=== PATIENT | female | born 1980 | race American Indian/Alaskan Native ===

== ENCOUNTER 2018-04-13 13:15 | Emergency (ER) | payer SELFPAY ==
[2018-04-13] MEDS ORDERED: NORCO 5/325 PO ONE (20:02)
--- NOTE | 2018-04-13 20:48 | Emergency Department Report ---
HPI - General Chief Complaint: Abdominal Pain Time Seen by Provider: 04/13/18 19:51 - HPI HPI: 38-year-old female presents to the emergency department from home with complaint of a 2 day history of some epigastric to left upper quadrant abdominal pain that is associated with one day of nausea and diarrhea but no vomiting. She also complains of worsening of her chronic low back pain since she had a fall 2 months ago. She denies any numbness or paresthesias, problems with urinary retention, or with any neurological deficits. She took some ibuprofen for her symptoms without any relief. She has a past medical history of asthma, hypertension and degenerative disc disease of the lumbar region. No recent travel or sick contacts at home. ED Past Medical Hx - Past Medical History Previous Medical History?: Yes Hx Hypertension: Yes Hx Asthma: Yes Additional medical history: DJD lumbar region - Surgical History Past Surgical History?: Yes Additional Surgical History: x 4, hernia repair, D&C - Social History Smoking Status: Never Smoker Substance Use Type: Alcohol - Medications Home Medications: Home Medications Medication Instructions Recorded Confirmed Last Taken Type HYDROcodone/APAP 5-325 [[place] 1 each PO Q6HR PRN #10 tablet 04/13/18 Unknown Rx 5/325] Ondansetron [Zofran Odt] 4 mg PO Q8H PRN #10 tab.rapdis 04/13/18 Unknown Rx ED Review of Systems ROS: Stated complaint: ABD PAIN Other details as noted in HPI Comment: All other systems reviewed and negative Constitutional: denies: chills, fever Eyes: denies: eye pain, eye discharge, vision change ENT: denies: ear pain, throat pain Respiratory: denies: cough, shortness of breath, wheezing Cardiovascular: denies: chest pain, palpitations Gastrointestinal: abdominal pain, nausea. denies: vomiting Genitourinary: denies: dysuria, discharge Musculoskeletal: back pain. denies: arthralgia Skin: denies: rash, lesions Neurological: denies: headache, weakness, numbness Physical Exam - Physical Exam Vital Signs: Vital Signs 04/13/18 04/13/18 13:29 20:28 Temperature 99.2 F Pulse Rate 63 Respiratory 20 18 Rate Blood Pressure 152/95 O2 Sat by Pulse 96 Oximetry Physical Exam: GENERAL: The patient is well-developed well-nourished. HEENT: Normocephalic. Atraumatic. Patient has moist mucous membranes. EYES: Extraocular motions are intact. NECK: Supple. Trachea is midline. CHEST/LUNGS: Clear to auscultation. There is no respiratory distress noted. HEART/CARDIOVASCULAR: Regular. There is no tachycardia. There is no gallop rub or murmur. ABDOMEN: Abdomen is soft. There is some mild tenderness to palpation to the left upper quadrant. No guarding. Patient has normal bowel sounds. Morbidly obese habitus. SKIN: Skin is warm and dry. NEURO: The patient is awake, alert, and oriented. The patient is cooperative. The patient has no focal neurologic deficits. The patient has normal speech. MUSCULOSKELETAL: There is no tenderness or deformity. There is no limitation range of motion. There is no evidence of acute injury. BACK: There is both midline and bilateral paraspinal lumbar tenderness to palpation. No step-off or deformity. ED Course Vital Signs 04/13/18 04/13/18 13:29 20:28 Temperature 99.2 F Pulse Rate 63 Respiratory 20 18 Rate Blood Pressure 152/95 O2 Sat by Pulse 96 Oximetry ED Medical Decision Making - Lab Data Result diagrams: 04/13/18 20:15 04/13/18 20:15 - Radiology Data Radiology results: image reviewed interpreted by me: Abdominal x-ray shows nonspecific nonobstructive bowel gas. X-ray of the lumbar spine does not show any fracture, subluxation or any acute process. - Medical Decision Making Patient presents with a complaint of a few days of left upper quadrant abdominal pain along with some nausea and diarrhea today. Just complains of acute on chronic low back pain since a fall 2 months ago. The patient does not have any focal, motor or sensory deficits in her cranial nerves are intact. No complaints of any problems with bowel or bladder, numbness or paresthesias or any neurological deficits. She appears low suspicion for any of the emergent back condition such as cauda equina, epidural abscess or cord compression syndrome. She had an x-ray of the lumbar spine but does not show any fracture, dislocation or any acute process. Patient's labs have been unremarkable including normal belly labs such as lipase, LFTs and bilirubin. Abdominal x- ray does not show any acute process. The patient was given a single pain pill with improvement of her abdominal pain. Vital signs stable throughout her ED course. She has been reevaluated multiple times several hours. She appears safe for discharge home at this time. She has been given a referral for primary care, gastroenterology and an orthopedist. She will return the ER with any worsening of her symptoms or any acute distress. - Differential Diagnosis gastritis, colitis, osteoarthritis, back strain Critical Care Time: No Critical care attestation.: If time is entered above; I have spent that time in minutes in the direct care of this critically ill patient, excluding procedure time. ED Disposition Clinical Impression: Hypertension Qualifiers: Hypertension type: essential hypertension Qualified Code(s): I10 - Essential ( primary) hypertension Abdominal pain Qualifiers: Abdominal location: upper abdomen, unspecified Qualified Code(s): R10.10 - Upper abdominal pain, unspecified Back pain Qualifiers: Back pain location: low back pain Chronicity: chronic Back pain laterality: bilateral Sciatica presence: without sciatica Qualified Code(s): M54.5 - Low back pain Disposition: TO HOME OR SELFCARE Is pt being admited?: No Condition: Stable Instructions: Abdominal Pain (ED), Hypertension (ED), Back Pain (ED) Additional Instructions: Please follow up with a primary care physician in the next few days. I will give you some referrals for primary care physicians and/or clinics in the area. I have given him a referral for a local supervisor speech, Dr. Handley, to follow up regarding her abdominal pain. I am getting a referral for a local orthopedic group, [facility], to follow up regarding her back pain. Return to the emergency Department with any worsening of your symptoms or any acute distress. You have been prescribed a medication that can be sedating. Therefore this medication should not be mixed with alcohol of any quantity, and cannot be taken prior to driving, working, or being responsible for children. Prescriptions: HYDROcodone/APAP 5-325 [[place] 5/325] 1 each PO Q6HR PRN #10 tablet PRN Reason: Pain Ondansetron [Zofran Odt] 4 mg PO Q8H PRN #10 tab.rapdis PRN Reason: Nausea Referrals: PRIMARY MD MANDI [Primary Care Provider] - 3-5 Days LINDY HANDLEY MD [Staff Physician] - 3-5 Days DAYANARA KRISHNAMURTHY MD [Staff Physician] - 3-5 Days [facility] [Outside] - 3-5 Days [facility] [Provider Group] - 3-5 Days Time of Disposition: 23:10
[2018-04-13 20:54] LABS: Hematocrit 39.8 % (30.3-42.9); Hemoglobin 12.7 gm/dl (10.1-14.3); Mean Corpuscular HGB Conc 32 % (30-34); Mean Corpuscular Hemoglobin 27 pg (28-32); Mean Corpuscular Volume 84 fl (79-97); Platelet Count 242 K/mm3 (140-440); Red Blood Count 4.72 M/mm3 (3.65-5.03)
[2018-04-13 21:05] LABS: Albumin 4.1 g/dL (3.9-5); BUN/Creatinine Ratio 33; Blood Urea Nitrogen 20 mg/dL (7-17); Hemolysis Index 48; Lipase 10 units/L (13-60)
[2018-04-13 21:06] LABS: Alanine Aminotransferase < 5 units/L (7-56)
--- NOTE | 2018-04-13 22:56 | XRay Report ---
FINAL REPORT EXAM: XR SPINE LUMBOSACRAL 2-3V HISTORY: back pain TECHNIQUE: Lumbar spine 5 views PRIORS: None. FINDINGS: Vertebral bodies demonstrate normal height and alignment. The disc spaces are within normal limits. There is no evidence of spondylolisthesis. Transverse and spinous processes are intact SI joints are unremarkable. IMPRESSION: Negative lumbar spine series
--- NOTE | 2018-04-13 22:57 | XRay Report ---
FINAL REPORT EXAM: XR ABDOMEN 2V HISTORY: abd pain TECHNIQUE: Supine abdomen PRIORS: None. FINDINGS: Moderate amount of stool and gas present within the colon. No evidence of colonic or small bowel dilatation. No signs of free air. No abnormal calcifications are identified. IMPRESSION: Nonobstructive bowel gas pattern. No acute abnormality seen.
[2018-04-13 23:33] VITALS: BP 146/72
== END 2018-04-13 23:31 | disposition home or self-care (01) ==
LOC: ED 13:15
DX: R10.12 Left upper quadrant pain (principal); I10 Essential (primary) hypertension; M54.5 Low back pain; J45.909 Unspecified asthma, uncomplicated; F10.920 Alcohol use, unspecified with intoxication, uncomplicated
CPT/HCPCS: 36415; 72100; 74019; 80053; 83690; 84703; 85025; 99284

== ENCOUNTER 2019-01-09 13:37 | Emergency (ER) | payer OTHER ==
[2019-01-09 13:50] VITALS: BP 146/94
[2019-01-09] MEDS ORDERED: NACL 0.9% 1000 ML 1,000 ML IV ONE (13:50)
[2019-01-09] MEDS ORDERED: ZOFRAN ODT PO/SL ONE (13:50)
--- NOTE | 2019-01-09 13:50 | Event Note ---
ED Screening Note ED Screening Note: n/v today l flank pain also sob- tight from asthma pmh fibroids htn obese migraines pe last year; off eloquis Carlos asthma etoh occ lmp just off csec x 4 d/c hernia repair off all her bp meds and topamax This initial assessment/diagnostic orders/clinical plan/treatment(s) is/are subject to change based on patients health status, clinical progression and re- assessment by fellow clinical providers in the ED. Further treatment and workup at subsequent clinical providers discretion. Patient/guardian urged not to elope from the ED as their condition may be serious if not clinically assessed and managed. Initial orders include: labs ua
[2019-01-09] MEDS: ZOFRAN IV ONE ×2 (13:52→18:26)
[2019-01-09] MEDS ORDERED: ZOFRAN ODT ONE (13:53)
[2019-01-09 15:17] LABS: Hematocrit 35.7 % (30.3-42.9); Hemoglobin 11.8 gm/dl (10.1-14.3); Mean Corpuscular HGB Conc 33 % (30-34); Mean Corpuscular Volume 84 fl (79-97); Platelet Count 292 K/mm3 (140-440); Red Blood Count 4.27 M/mm3 (3.65-5.03); Red Cell Distribution Width 17.4 % (13.2-15.2)
[2019-01-09] MEDS ORDERED: MORPHINE IV ONE ×2 (17:34→20:20)
--- NOTE | 2019-01-09 17:39 | Emergency Department Report ---
ED Abdominal Pain HPI - General Chief Complaint: Abdominal Pain Stated Complaint: ABD PAIN/NAUSEA Time Seen by Provider: 01/09/19 13:46 Source: patient Mode of arrival: Ambulatory Limitations: No Limitations - History of Present Illness Initial Comments: This is a 38 year-old female who presents to the emergency room with left lower quadrant abdominal pain for 2 days. Patient states worsening pain today with nausea, vomiting, shortness of breath, and diarrhea. Past medical history fibroids, hypertension, and asthma. Last menstrual period 01/01/2019. She also reports some mid back pain that is worse with deep rest. She denies recent travel, fever, cough, urinary frequency, urgency, dysuria. MD Complaint: abdominal pain Onset/Timin -: days(s) Location: LLQ Radiation: back Migration to: no migration Severity: severe Severity scale (0 -10): 10 Quality: stabbing, sharp Consistency: constant Improves With: nothing Worsens With: movement Associated Symptoms: nausea, vomiting, diarrhea. denies: fever, chills, constipation, dysuria, hematemesis, hematochezia, melena, hematuria, anorexia, syncope Treatments Prior to Arrival: NSAIDs - Related Data LMP Date: 01/01/19 Home Medications Medication Instructions Recorded Confirmed Last Taken Remeron 30 mg PO HS 04/23/18 05/11/18 Unknown traZODone 150 mg PO HS 04/23/18 05/11/18 Unknown Previous Rx's Medication Instructions Recorded Last Taken Type Losartan 100 mg PO DAILY #30 04/25/18 Unknown Rx amLODIPine 10 mg PO DAILY #30 04/25/18 Unknown Rx Apixaban [Eliquis] 5 mg PO BID 30 Days tablet 05/16/18 Unknown Rx Prednisone [predniSONE 5 mg (6-Day 5 mg PO .TAPER #1 tab.ds.pk 05/16/18 Unknown Rx Pack, 21 Tabs)] amLODIPine [Norvasc] 10 mg PO DAILY #30 tablet 05/16/18 Unknown Rx guaiFENesin ER [Mucinex ER] 600 mg PO BID #30 tablet 05/16/18 Unknown Rx oxyCODONE /ACETAMINOPHEN [Percocet 2 tab PO Q6H PRN #20 tablet 05/16/18 Unknown Rx 5/325 mg] Dicyclomine [Bentyl] 20 mg PO QID #30 tablet 05/28/18 Unknown Rx Amoxicillin 500 mg PO QID #40 capsule 06/29/18 Unknown Rx Chlorhexidine Mouthwash [Peridex] 15 ml MM BID #473 bottle 06/29/18 Unknown Rx Ketorolac [Toradol] 10 mg PO Q6H PRN #15 tablet 06/29/18 Unknown Rx Lidocaine Viscous 2% 5 ml MM Q3H PRN #120 udc 06/29/18 Unknown Rx Lopressor TAB 25 mg PO BID #60 06/29/18 Unknown Rx Ibuprofen [Motrin 800 MG tab] 800 mg PO Q8HR PRN #20 tablet 01/09/19 Unknown Rx Allergies Allergy/AdvReac Type Severity Reaction Status Date / Time No Known Allergies Allergy Verified 01/09/19 13:50 ED Review of Systems ROS: Stated complaint: ABD PAIN/NAUSEA Other details as noted in HPI Constitutional: denies: chills, fever Respiratory: denies: cough, shortness of breath, wheezing Cardiovascular: denies: chest pain, palpitations Gastrointestinal: abdominal pain, nausea, vomiting, diarrhea. denies: constipation, hematochezia Genitourinary: denies: urgency, dysuria, discharge Musculoskeletal: back pain. denies: joint swelling, arthralgia Skin: denies: rash, lesions Neurological: denies: headache, weakness, paresthesias Psychiatric: denies: anxiety, depression ED Past Medical Hx - Past Medical History Previous Medical History?: Yes Hx Hypertension: Yes Hx CVA: No Hx Heart Attack/AMI: No Hx Congestive Heart Failure: No Hx Diabetes: No Hx Deep Vein Thrombosis: No Hx Pulmonary Embolism: Yes (right 2018) Hx GERD: No Hx Liver Disease: No Hx Renal Disease: No Hx of Cancer: No Hx Sickle Cell Disease: No Hx Arthritis: No Hx Headaches / Migraines: Yes Hx Seizures: No Hx Kidney Stones: No Hx Psychiatric Treatment: No Hx Asthma: Yes Hx COPD: No Hx Tuberculosis: No Hx Dementia: No Hx HIV: No Additional medical history: DJD lumbar region - Surgical History Past Surgical History?: Yes Hx Coronary Stent: No Hx Pacemaker: No Hx Internal Defibrillator: No Hx Cholecystectomy: No Hx Appendectomy: No Hx Breast Surgery: No Additional Surgical History: x 4, hernia repair, D&C - Social History Smoking Status: Never Smoker Substance Use Type: Alcohol - Medications Home Medications: Home Medications Medication Instructions Recorded Confirmed Last Taken Type Remeron 30 mg PO HS 04/23/18 05/11/18 Unknown History traZODone 150 mg PO HS 04/23/18 05/11/18 Unknown History Losartan 100 mg PO DAILY #30 04/25/18 05/11/18 Unknown Rx amLODIPine 10 mg PO DAILY #30 04/25/18 05/11/18 Unknown Rx Apixaban [Eliquis] 5 mg PO BID 30 Days tablet 05/16/18 Unknown Rx Prednisone [predniSONE 5 mg (6-Day 5 mg PO .TAPER #1 tab.ds.pk 05/16/18 Unknown Rx Pack, 21 Tabs)] amLODIPine [Norvasc] 10 mg PO DAILY #30 tablet 05/16/18 Unknown Rx guaiFENesin ER [Mucinex ER] 600 mg PO BID #30 tablet 05/16/18 Unknown Rx oxyCODONE /ACETAMINOPHEN [Percocet 2 tab PO Q6H PRN #20 tablet 05/16/18 Unknown Rx 5/325 mg] Dicyclomine [Bentyl] 20 mg PO QID #30 tablet 05/28/18 Unknown Rx Amoxicillin 500 mg PO QID #40 capsule 06/29/18 Unknown Rx Chlorhexidine Mouthwash [Peridex] 15 ml MM BID #473 bottle 06/29/18 Unknown Rx Ketorolac [Toradol] 10 mg PO Q6H PRN #15 tablet 06/29/18 Unknown Rx Lidocaine Viscous 2% 5 ml MM Q3H PRN #120 udc 06/29/18 Unknown Rx Lopressor TAB 25 mg PO BID #60 06/29/18 Unknown Rx Ibuprofen [Motrin 800 MG tab] 800 mg PO Q8HR PRN #20 tablet 01/09/19 Unknown Rx ED Physical Exam - General Limitations: No Limitations General appearance: alert, in no apparent distress, obese (morbidly) - Respiratory Respiratory exam: Present: normal lung sounds bilaterally. Absent: respiratory distress - Cardiovascular Cardiovascular Exam: Present: regular rate, normal rhythm. Absent: systolic murmur, diastolic murmur, rubs, gallop - GI/Abdominal GI/Abdominal exam: Present: soft, tenderness (left lower quadrant and left upper quadrant), normal bowel sounds. Absent: distended, guarding, rebound, rigid, organomegaly, mass - Back Exam Back exam: Absent: CVA tenderness (R), CVA tenderness (L) - Neurological Exam Neurological exam: Present: alert, oriented X3 - Psychiatric Psychiatric exam: Present: normal affect, normal mood - Skin Skin exam: Present: warm, dry, intact, normal color. Absent: rash ED Course Vital Signs 01/09/19 01/09/19 01/09/19 13:47 18:14 18:44 Temperature 98.4 F Pulse Rate 107 H Respiratory 22 18 18 Rate Blood Pressure 146/94 [Right] O2 Sat by Pulse 95 Oximetry 01/09/19 20:35 Temperature Pulse Rate Respiratory 16 Rate Blood Pressure [Right] O2 Sat by Pulse Oximetry ED Medical Decision Making - Lab Data Result diagrams: 01/09/19 14:51 01/09/19 19:50 Lab Results 01/09/19 01/09/19 01/09/19 Range/Units 14:51 14:51 19:12 WBC 6.9 (4.5-11.0) K/mm3 RBC 4.27 (3.65-5.03) M/mm3 Hgb 11.8 (10.1-14.3) gm/dl Hct 35.7 (30.3-42.9) % MCV 84 (79-97) fl MCH 28 (28-32) pg MCHC 33 (30-34) % RDW 17.4 H (13.2-15.2) % Plt Count 292 (140-440) K/mm3 Lymph % (Auto) Traffic Expert [place] % (Auto) Traffic Expert Eos % (Auto) Traffic Expert Baso % (Auto) Traffic Expert Lymph # Traffic Expert [place] # Traffic Expert Eos # Traffic Expert Baso # Traffic Expert Seg Neutrophils % Traffic Expert Seg Neutrophils # Traffic Expert Sodium (137-145) mmol/L Potassium (3.6-5.0) mmol/L Chloride (98-107) mmol/L Carbon Dioxide (22-30) mmol/L Anion Gap mmol/L BUN (7-17) mg/dL Creatinine (0.7-1.2) mg/dL Estimated GFR ml/min BUN/Creatinine Ratio % Glucose (65-100) mg/dL Calcium (8.4-10.2) mg/dL Total Bilirubin 0.50 (0.1-1.2) mg/dL Direct Bilirubin < 0.2 (0-0.2) mg/dL Indirect Bilirubin 0.3 mg/dL AST 13 (5-40) units/L ALT 9 (7-56) units/L Alkaline Phosphatase 99 (35-129) units/L Total Protein 6.6 (6.3-8.2) g/dL Albumin 4.0 (3.9-5) g/dL Albumin/Globulin Ratio 1.5 % Amylase 43 (27-131) units/L Lipase 7 L (13-60) units/L Urine Color Yellow (Yellow) Urine Turbidity Slightly-cloudy (Clear) Urine pH 5.0 (5.0-7.0) Ur Specific [place] 1.019 (1.003-1.030) Urine Protein <15 mg/dl (Negative) mg/dL Urine Glucose (UA) Neg (Negative) mg/dL Urine Ketones Neg (Negative) mg/dL Urine Blood Lg (Negative) Urine Nitrite Neg (Negative) Urine Bilirubin Neg (Negative) Urine Urobilinogen < 2.0 (<2.0) mg/dL Ur Leukocyte Esterase Neg (Negative) Urine WBC (Auto) 2.0 (0.0-6.0) /HPF Urine RBC (Auto) 2.0 (0.0-6.0) /HPF U Epithel Cells (Auto) 7.0 (0-13.0) /HPF Urine Bacteria (Auto) 1+ (Negative) /HPF Urine Mucus Few /HPF Urine HCG, Qual Negative (Negative) 01/09/19 Range/Units 19:50 WBC (4.5-11.0) K/mm3 RBC (3.65-5.03) M/mm3 Hgb (10.1-14.3) gm/dl Hct (30.3-42.9) % MCV (79-97) fl MCH (28-32) pg MCHC (30-34) % RDW (13.2-15.2) % Plt Count (140-440) K/mm3 Lymph % (Auto) [place] % (Auto) Eos % (Auto) Baso % (Auto) Lymph # [place] # Eos # Baso # Seg Neutrophils % Seg Neutrophils # Sodium 143 (137-145) mmol/L Potassium 5.0 (3.6-5.0) mmol/L Chloride 104.6 (98-107) mmol/L Carbon Dioxide 23 (22-30) mmol/L Anion Gap 20 mmol/L BUN 17 (7-17) mg/dL Creatinine 0.9 (0.7-1.2) mg/dL Estimated GFR > 60 ml/min BUN/Creatinine Ratio 19 % Glucose 71 (65-100) mg/dL Calcium 8.6 (8.4-10.2) mg/dL Total Bilirubin 0.50 (0.1-1.2) mg/dL Direct Bilirubin (0-0.2) mg/dL Indirect Bilirubin mg/dL AST 13 (5-40) units/L ALT 9 (7-56) units/L Alkaline Phosphatase 95 (35-129) units/L Total Protein 6.5 (6.3-8.2) g/dL Albumin 3.9 (3.9-5) g/dL Albumin/Globulin Ratio 1.5 % Amylase (27-131) units/L Lipase (13-60) units/L Urine Color (Yellow) Urine Turbidity (Clear) Urine pH (5.0-7.0) Ur Specific [place] (1.003-1.030) Urine Protein (Negative) mg/dL Urine Glucose (UA) (Negative) mg/dL Urine Ketones (Negative) mg/dL Urine Blood (Negative) Urine Nitrite (Negative) Urine Bilirubin (Negative) Urine Urobilinogen (<2.0) mg/dL Ur Leukocyte Esterase (Negative) Urine WBC (Auto) (0.0-6.0) /HPF Urine RBC (Auto) (0.0-6.0) /HPF U Epithel Cells (Auto) (0-13.0) /HPF Urine Bacteria (Auto) (Negative) /HPF Urine Mucus /HPF Urine HCG, Qual (Negative) - EKG Data -: No EKG Interpreted by Me (EKG interpreted by Attending) EKG shows normal: sinus rhythm Rate: normal - Radiology Data Radiology results: report reviewed CHEST 2 VIEWS 2023 INDICATION / CLINICAL INFORMATION: SOB. COMPARISON: None available. FINDINGS: SUPPORT DEVICES: None. HEART / MEDIASTINUM: Mild cardiomegaly. Pulmonary vascularity appears within normal limits. The lower portion of the right hilum is prominent which probably is just vascular but a mass lesion cannot be fully excluded. LUNGS / PLEURA: No significant pulmonary or pleural abnormality. No pneumothorax. ADDITIONAL FINDINGS: No significant additional findings. IMPRESSION: 1. No significant acute abnormality. 2. Question of right hilar prominence. Follow-up with CT in a nonurgent setting may be useful. I would at least recommend follow-up chest x-ray to see if this is a persistent abnormality. CT ABDOMEN AND PELVIS WITHOUT CONTRAST INDICATION: LLQ LUQ pain. TECHNIQUE: Axial CT images were obtained through the abdomen and pelvis without IV contrast. All CT scans at this location are performed using CT dose reduction for [place] by means of automated exposure contro l. COMPARISON: CT abdomen pelvis 05/28/2018 FINDINGS: Lung bases are clear. LOWER CHEST: Cardiomegaly, unchanged LIVER: No significant abnormality. GALLBLADDER: No significant abnormality. BILE DUCTS: No significant abnormality. PANCREAS: Severe fatty atrophy of pancreas, unchanged SPLEEN: No significant abnormality. ADRENALS: No significant abnormality. RIGHT KIDNEY and URETER: Slight malrotation, unchanged LEFT KIDNEY and URETER: No significant abnormality. STOMACH and SMALL BOWEL: No significant abnormality. COLON: No significant abnormality. APPENDIX: No significant abnormality. PERITONEUM: No free fluid. No free air. No fluid collection. LYMPH NODES: No significant adenopathy. AORTA and ARTERIES: No significant abnormality. IVC and VEINS: No significant abnormality. URINARY BLADDER: No significant abnormality. REPRODUCTIVE ORGANS: 3 cm right ovarian cyst. Uterus and left ovary show no significant abnormality ADDITIONAL FINDINGS: None. SKELETAL SYSTEM: No significant abnormality. IMPRESSION: 1. 3 cm right ovarian cyst. No free fluid. 2. No urinary tract calculi or hydronephrosis. - Medical Decision Making Patient was examined by me. Vitals are normal and patient is in no acute distress. Obtained labs, chest x-ray, and CT of the abdomen and pelvis. All labs are unremarkable. Radiograph dictated per radiologist report reviewed by myself. CXR 1. No significant acute abnormality. 2. Question of right hilar prominence. Follow-up with CT in a nonurgent setting may be useful. I would at least recommend follow-up chest x-ray to see if this is a persistent abnormality. CT 1. 3 cm right ovarian cyst. No free fluid. 2. No urinary tract calculi or hydronephrosis. Patient informed of results. Start ibuprofen for pain. Plan discussed with patient to discharge home and treat outpatient. He agrees with ER plan. Patient discharged home in stable condition. Follow up with PCP in 2-3 days. Critical care attestation.: If time is entered above; I have spent that time in minutes in the direct care of this critically ill patient, excluding procedure time. ED Disposition Clinical Impression: Right ovarian cyst, Nausea and vomiting in adult Abdominal pain Qualifiers: Abdominal location: left lower quadrant Qualified Code(s): R10.32 - Left lower quadrant pain Disposition: TO HOME OR SELFCARE Is pt being admited?: No Does the pt Need Aspirin: No Condition: Stable Instructions: Ovarian Cyst (ED), Abdominal Pain (ED) Additional Instructions: Follow-up with the vacuum cleaner operator and primary care provider from the referral list below. Prescriptions: Ibuprofen [Motrin 800 MG tab] 800 mg PO Q8HR PRN #20 tablet PRN Reason: Pain , Severe (7-10) Referrals: [facility] [Outside] - 3-5 Days [facility] [Outside] - 3-[address] [facility] [Outside] - 3-5 Days [facility] [Provider Group] - 3-5 Days [facility] [Provider Group] - 3-5 Days Forms: Work/School Release Form(ED) Time of Disposition: 22:09
[2019-01-09] MEDS ORDERED: NACL 0.9% 1000 ML 1,000 ML ONE (18:01)
[2019-01-09 19:25] LABS: Alanine Aminotransferase 9 units/L (7-56)
[2019-01-09 19:28] LABS: Bilirubin,Direct < 0.2 mg/dL (0-0.2)
[2019-01-09 19:37] LABS: Bacteria,Urine 1+ /HPF (Negative); Bilirubin,Urine NEG (Negative); Blood,Urine LG (Negative); Color,Urine Yellow (Yellow); Mucus,Urine FEW /HPF; Protein,Urine <15 mg/dL mg/dL (Negative); Urobilinogen,Urine < 2.0 mg/dL (<2.0)
[2019-01-09 19:42] LABS: HCG Qualitative,Urine Negative (Negative)
[2019-01-09] MEDS ORDERED: REGLAN IV ONE (20:20)
[2019-01-09 20:23] LABS: Alanine Aminotransferase 9 units/L (7-56); Albumin 3.9 g/dL (3.9-5); BUN/Creatinine Ratio 19; Blood Urea Nitrogen 17 mg/dL (7-17); Calcium 8.6 mg/dL (8.4-10.2); Hemolysis Index 33
[2019-01-09] MEDS ORDERED: MORPHINE ONE (20:23)
[2019-01-09] MEDS ORDERED: REGLAN ONE (20:23)
--- NOTE | 2019-01-09 20:48 | XRay Report ---
CHEST 2 VIEWS 2023 INDICATION / CLINICAL INFORMATION: SOB. COMPARISON: None available. FINDINGS: SUPPORT DEVICES: None. HEART / MEDIASTINUM: Mild cardiomegaly. Pulmonary vascularity appears within normal limits. The lower portion of the right hilum is prominent which probably is just vascular but a mass lesion cannot be fully excluded. LUNGS / PLEURA: No significant pulmonary or pleural abnormality. No pneumothorax. ADDITIONAL FINDINGS: No significant additional findings. IMPRESSION: 1. No significant acute abnormality. 2. Question of right hilar prominence. Follow-up with CT in a nonurgent setting may be useful. I woul d at least recommend follow-up chest x-ray to see if this is a persistent abnormality. Signer Name: Roverto Tom MD Signed: 01/09/2019 8:43 PM Workstation Name: [id number]
--- NOTE | 2019-01-09 21:18 | Cat Scan Report ---
CT ABDOMEN AND PELVIS WITHOUT CONTRAST INDICATION: LLQ LUQ pain. TECHNIQUE: Axial CT images were obtained through the abdomen and pelvis without IV contrast. All CT scans at [facility] location are performed using CT dose reduction for ALARA by means of automated exposure control. COMPARISON: CT abdomen pelvis 05/28/2018 FINDINGS: Lung bases are clear. LOWER CHEST: Cardiomegaly, unchanged LIVER: No significant abnormality. GALLBLADDER: No significant abnormality. BILE DUCTS: No significant abnormality. PANCREAS: Severe fatty atrophy of pancreas, unchanged SPLEEN: No significant abnormality. ADRENALS: No significant abnormality. RIGHT KIDNEY and URETER: Slight malrotation, unchanged LEFT KIDNEY and URETER: No significant abnormality. STOMACH and SMALL BOWEL: No significant abnormality. COLON: No significant abnormality. APPENDIX: No significant abnormality. PERITONEUM: No free fluid. No free air. No fluid collection. LYMPH NODES: No significant adenopathy. AORTA and ARTERIES: No significant abnormality. IVC and VEINS: No significant abnormality. URINARY BLADDER: No significant abnormality. REPRODUCTIVE ORGANS: 3 cm right ovarian cyst. Uterus and left ovary show no significant abnormality ADDITIONAL FINDINGS: None. SKELETAL SYSTEM: No significant abnormality. IMPRESSION: 1. 3 cm right ovarian cyst. No free fluid. 2. No urinary tract calculi or hydronephrosis. Signer Name: Shaan Becker MD Signed: 01/09/2019 9:14 PM Workstation Name: [id number]
== END 2019-01-09 22:38 | disposition home or self-care (01) ==
LOC: ED 13:37
DX: N83.201 Unspecified ovarian cyst, right side (principal); I10 Essential (primary) hypertension; G43.909 Migraine, unspecified, not intractable, without status migrainosus; J45.909 Unspecified asthma, uncomplicated; Z86.718 Personal history of other venous thrombosis and embolism
CPT/HCPCS: 36415; 71046; 74176; 80053; 80076; 81001; 81025; 82150; 83690; 85025; 93005; 93010; 96361; 96374; 96375; 96376; 99285; J2270; J2765; J7030; Q0162

== ENCOUNTER 2019-01-11 11:37 | Inpatient (IN) | payer OTHER ==
[2019-01-11] MEDS ORDERED: MAGNESIUM SULFATE 2GM/50ML 2 GM/50 ML BAG IV ONE (11:44)
[2019-01-11] MEDS ORDERED: SOLU-Medrol IV ONE (11:44)
[2019-01-11] MEDS ORDERED: DUONEB *Not for PRN Use IH ONE (11:47)
--- NOTE | 2019-01-11 11:47 | Emergency Department Report ---
ED Shortness of Breath HPI - General Stated Complaint: ASTHMA Time Seen by Provider: 01/11/19 11:40 Source: patient, EMS Mode of arrival: Stretcher Limitations: No Limitations - History of Present Illness Initial Comments: Patient is a 38-year-old female that presents emergency room with complaints of shortness of breath and dyspnea on exertion as well as an asthma attack. Meka ent states she has been taking her asthma medications nothing is helping. Patient states she took nebs at home with no relief. Patient was given a note in route by EMS with no relief. Patient denies chest pain. . Patient denies syncope. Patient denies headache. Patient denies blurry vision. Patient denies lightheadedness. Patient states she is having lower extremity edema. MD Complaint: shortness of breath, cough, "asthma attack" -: Sudden, days(s) Severity: severe Consistency: constant Improves With: oxygen, rest, bronchodilators, medication Worsens With: exertion, coughing Known History Of: asthma Associated Symptoms: cough Treatments Prior to Arrival: oxygen, bronchodilator - Related Data Home Oxygen Therapy: No Home Medications Medication Instructions Recorded Confirmed Last Taken Remeron 30 mg PO HS 04/23/18 01/11/19 Unknown traZODone 150 mg PO HS 04/23/18 01/11/19 Unknown Previous Rx's Medication Instructions Recorded Last Taken Type Losartan 100 mg PO DAILY #30 04/25/18 Unknown Rx amLODIPine 10 mg PO DAILY #30 04/25/18 Unknown Rx amLODIPine [Norvasc] 10 mg PO DAILY #30 tablet 05/16/18 Unknown Rx oxyCODONE /ACETAMINOPHEN [Percocet 2 tab PO Q6H PRN #20 tablet 05/16/18 Unknown Rx 5/325 mg] Lopressor TAB 25 mg PO BID #60 06/29/18 Unknown Rx Allergies Allergy/AdvReac Type Severity Reaction Status Date / Time No Known Allergies Allergy Verified 01/09/19 13:50 ED Review of Systems ROS: Stated complaint: ASTHMA Other details as noted in HPI Constitutional: denies: chills, fever Eyes: denies: eye pain, eye discharge, vision change ENT: denies: ear pain, throat pain Respiratory: cough, shortness of breath, SOB with exertion, SOB at rest, wheezing Cardiovascular: dyspnea on exertion, edema. denies: chest pain, palpitations Endocrine: no symptoms reported Gastrointestinal: denies: abdominal pain, nausea, diarrhea Genitourinary: denies: urgency, dysuria, discharge Musculoskeletal: denies: back pain, joint swelling, arthralgia Skin: denies: rash, lesions Neurological: denies: headache, weakness, paresthesias Psychiatric: denies: anxiety, depression Hematological/Lymphatic: denies: easy bleeding, easy bruising ED Past Medical Hx - Past Medical History Hx Hypertension: Yes Hx CVA: No Hx Heart Attack/AMI: No Hx Congestive Heart Failure: No Hx Diabetes: No Hx Deep Vein Thrombosis: No Hx Pulmonary Embolism: Yes (right 2018) Hx GERD: No Hx Liver Disease: No Hx Renal Disease: No Hx Sickle Cell Disease: No Hx Arthritis: No Hx Headaches / Migraines: Yes Hx Seizures: No Hx Kidney Stones: No Hx Psychiatric Treatment: No Hx Asthma: Yes Hx COPD: No Hx Tuberculosis: No Hx Dementia: No Hx HIV: No Additional medical history: DJD lumbar region - Surgical History Hx Coronary Stent: No Hx Pacemaker: No Hx Internal Defibrillator: No Hx Cholecystectomy: No Hx Appendectomy: No Hx Breast Surgery: No Additional Surgical History: x 4, hernia repair, D&C - Social History Smoking Status: Never Smoker Substance Use Type: Alcohol - Medications Home Medications: Home Medications Medication Instructions Recorded Confirmed Last Taken Type Remeron 30 mg PO HS 04/23/18 01/11/19 Unknown History traZODone 150 mg PO HS 04/23/18 01/11/19 Unknown History Losartan 100 mg PO DAILY #30 04/25/18 01/11/19 Unknown Rx amLODIPine 10 mg PO DAILY #30 04/25/18 05/11/18 Unknown Rx amLODIPine [Norvasc] 10 mg PO DAILY #30 tablet 05/16/18 01/11/19 Unknown Rx oxyCODONE /ACETAMINOPHEN [Percocet 2 tab PO Q6H PRN #20 tablet 05/16/18 01/11/19 Unknown Rx 5/325 mg] Lopressor TAB 25 mg PO BID #60 06/29/18 01/11/19 Unknown Rx ED Physical Exam - General General appearance: alert, in no apparent distress - Head Head exam: Present: atraumatic, normocephalic - Eye Eye exam: Present: normal appearance - ENT ENT exam: Present: mucous membranes moist - Neck Neck exam: Present: normal inspection - Respiratory Respiratory exam: Present: normal lung sounds bilaterally. Absent: respiratory distress - Cardiovascular Cardiovascular Exam: Present: regular rate, normal rhythm. Absent: systolic murmur, diastolic murmur, rubs, gallop - GI/Abdominal GI/Abdominal exam: Present: soft, normal bowel sounds - Extremities Exam Extremities exam: Present: normal inspection - Back Exam Back exam: Present: normal inspection - Neurological Exam Neurological exam: Present: alert, oriented X3 - Psychiatric Psychiatric exam: Present: normal affect, normal mood - Skin Skin exam: Present: warm, dry, intact, normal color. Absent: rash ED Course Vital Signs 01/11/19 01/11/19 01/11/19 11:44 11:46 12:00 Temperature Pulse Rate 101 H Respiratory 29 H Rate Blood Pressure 179/114 Blood Pressure [Left] O2 Sat by Pulse 93 93 93 Oximetry 01/11/19 01/11/19 01/11/19 12:04 12:16 12:30 Temperature 98.5 F Pulse Rate 97 H 102 H 102 H Respiratory 18 27 H 16 Rate Blood Pressure 179/114 179/114 179/114 Blood Pressure 179/114 [Left] O2 Sat by Pulse 100 95 94 Oximetry 01/11/19 01/11/19 01/11/19 12:46 13:00 13:16 Temperature Pulse Rate 101 H 101 H 96 H Respiratory 21 24 21 Rate Blood Pressure 167/110 167/110 Blood Pressure [Left] O2 Sat by Pulse 93 92 94 Oximetry 01/11/19 01/11/19 01/11/19 13:30 13:46 14:00 Temperature Pulse Rate 96 H 97 H 96 H Respiratory 26 H 18 27 H Rate Blood Pressure 185/118 167/110 167/110 Blood Pressure [Left] O2 Sat by Pulse 92 96 Oximetry 01/11/19 01/11/19 01/11/19 14:16 14:30 14:46 Temperature Pulse Rate 100 H 96 H 96 H Respiratory 16 18 30 H Rate Blood Pressure 193/128 181/114 193/128 Blood Pressure [Left] O2 Sat by Pulse 95 86 94 Oximetry 01/11/19 15:00 Temperature Pulse Rate 98 H Respiratory 18 Rate Blood Pressure 183/119 Blood Pressure [Left] O2 Sat by Pulse 93 Oximetry - Reevaluation(s) Reevaluation #1: Patient states she is still feeling the same. Patient states that having relief. Lung sounds positive for rales. No wheezing noted. pt c/o back pain. pt will be given to pt. 01/11/19 13:00 I discussed all results and findings with patient. Patient will have a CTA done. 01/11/19 14:09 Discussed results and the CHF findings with patient. Patient was given Lasix and states she is feeling better. 01/11/19 16:55 Reevaluation #2: I discussed all results with patient. Patient agrees to plan of care. Patient will be admitted to the hospitalist service. Patient will be placed on a heparin drip 01/11/19 17:56 - Consultations Consultation #1: Hospitalist consulted for admission. Hospitalist to admit patient and assume care of patient. Bridge orders placed 01/11/19 17:42 ED Medical Decision Making - Lab Data Result diagrams: 01/11/19 18:15 01/11/19 13:34 - EKG Data -: EKG Interpreted by Me EKG shows normal: sinus rhythm, axis, intervals, QRS complexes, ST-T waves Rate: tachycardia - Radiology Data Radiology results: report reviewed, image reviewed interpreted by me: Pulmonary edema noted on x-ray CHEST 1 VIEW INDICATION: Dyspnea. Chest pain for 2 days COMPARISON: 01/09/2019 FINDINGS: Support devices: None. Heart: Mild cardiomegaly is stable. Lungs/Pleura: Mild central pulmonary venous congestion is suspected. The right hilum remains slightly prominent which probably represents confluence of vessels. No evidence for infiltrate, large pleural effusion or pneumothorax. Additional findings: None. IMPRESSION: Mild cardiomegaly and central pulmonary venous congestion. No significant change since the exam 2 days ago. CTA CHEST WITH IV CONTRAST INDICATION: sob. hypoxia. TECHNIQUE: Axial CT images were obtained through the chest after injection of IV contrast. 3 plane MIP reconstructions were produced. All CT scans at this location are performed using CT dose reduction for ALARA by means of automated exposure control. COMPARISON: CTA chest 04/23/2018. FINDINGS: Pulmonary Arteries: No acute, occlusive DVT is seen. There is chronic PTE within segmental left upper lobe pulmonary artery (as seen on series 2 image 115). This had a similar appearance on the remote prior exam. Thoracic Aorta: No acute abnormality. Heart: Normal. Coronary Arteries: No significant calcification. Lungs: No acute air space or interstitial disease. There are mild atelectatic changes in the dependent lung bases. Pleura: No pleural effusion. No pneumothorax. Lymph Nodes: No significant adenopathy. Additional Findings: None. Upper Abdomen: No acute findings. Skeletal Structures: No significant osseous abnormality. IMPRESSION: 1. No acute PTE. There is chronic nonocclusive PTE within a single segmental left upper lobe pulmonary artery. The appearance is similar to the remote prior exam from 04/23/2018. Previously seen occlusive PTE in the right lower lobe has resolved. 2. Mild atelectatic changes in the bases. Lungs are otherwise clear. - Medical Decision Making Patient is a 38-year-old female presents to emergency room with complaints of asthma exacerbation and shortness of breath. Patient initially found to be wheezing. Patient given multiple medications wheezing then resolved and patient had audible rales. Patient's chest x-ray positive for pulmonary edema and cardiomegaly. Patient found to have a CHF exacerbation. Patient given Lasix and her symptoms improved. Patient given morphine and Dilaudid for her back pain. Patient's labs unremarkable. Patient is CTA done which shows a chronic nonocclusive PE. Patient admitted to the hospitalist service. - Differential Diagnosis PE. CHF. Status asthmaticus. Wheezing. Rales. Shortness of breath Critical Care Time: Yes Critical care attestation.: If time is entered above; I have spent that time in minutes in the direct care of this critically ill patient, excluding procedure time. Critical Care Time: 45 minutes ED Disposition Clinical Impression: SOB (shortness of breath), Hypoxia, Lower extremity edema, New onset of congestive heart failure Status asthmaticus Qualifiers: Asthma severity: severe Asthma persistence: persistent Qualified Code(s): J45.52 - Severe persistent asthma with status asthmaticus Pulmonary edema Qualifiers: Chronicity: acute Qualified Code(s): J81.0 - Acute pulmonary edema Pulmonary emboli Qualifiers: Pulmonary embolism type: unspecified Chronicity: acute Acute cor pulmonale presence: without acute cor pulmonale Qualified Code(s): I26.99 - Other pulmonary embolism without acute cor pulmonale Disposition: OP ADMIT IP TO THIS HOSP Is pt being admited?: Yes Does the pt Need Aspirin: No Condition: Critical Instructions: Pulmonary Edema (ED) Time of Disposition: 17:53
[2019-01-11 12:11] LABS: Basophils # (Auto) 0.1 K/mm3 (0.0-0.1); Basophils % (Auto) 1.5 % (0.0-1.8); Eosinophils # (Auto) 0.1 K/mm3 (0.0-0.4); Eosinophils % (Auto) 1.3 % (0.0-4.3); Hematocrit 35.3 % (30.3-42.9); Hemoglobin 11.6 gm/dl (10.1-14.3); Lymphocytes # (Auto) 2.1 K/mm3 (1.2-5.4); Lymphocytes % (Auto) 30.2 % (13.4-35.0); Mean Corpuscular HGB Conc 33 % (30-34); Mean Corpuscular Volume 83 fl (79-97); Monocytes # (Auto) 0.6 K/mm3 (0.0-0.8); Platelet Count 275 K/mm3 (140-440); Red Blood Count 4.26 M/mm3 (3.65-5.03); Red Cell Distribution Width 17.3 % (13.2-15.2)
--- NOTE | 2019-01-11 12:19 | XRay Report ---
CHEST 1 VIEW INDICATION: Dyspnea. Chest pain for 2 days COMPARISON: 01/09/2019 FINDINGS: Support devices: None. Heart: Mild cardiomegaly is stable. Lungs/Pleura: Mild central pulmonary venous congestion is suspected. The right hilum remains slightly prominent which probably represents confluence of vessels. No evidence for infiltrate, large pleural effusion or pneumothorax. Additional findings: None. IMPRESSION: Mild cardiomegaly and central pulmonary venous congestion. No significant change since the exam 2 da ys ago. Signer Name: Arian Butt Jr, MD Signed: 01/11/2019 12:14 PM Workstation Name: [id number]
[2019-01-11 12:35] LABS: Hemolysis Index 529
[2019-01-11 12:47] LABS: Blood Urea Nitrogen TNR mg/dL (7-17)
[2019-01-11 12:48] LABS: Alanine Aminotransferase TNR units/L (7-56); Albumin TNR g/dL (3.9-5); BUN/Creatinine Ratio TNR; Calcium TNR mg/dL (8.4-10.2)
[2019-01-11] MEDS ORDERED: LASIX IV ONE (14:00)
[2019-01-11] MEDS ORDERED: MORPHINE IV ONE (14:06)
[2019-01-11] MEDS ORDERED: ASPIRIN PO ONE (14:11)
[2019-01-11 14:24] LABS: Alanine Aminotransferase 10 units/L (7-56); Albumin 4.3 g/dL (3.9-5); BUN/Creatinine Ratio 14; Blood Urea Nitrogen 11 mg/dL (7-17); Calcium 8.9 mg/dL (8.4-10.2); Hemolysis Index 6
[2019-01-11 15:59] LABS: Creatine Kinase MB 1.4 ng/mL (0.0-4.0)
--- NOTE | 2019-01-11 17:45 | Cat Scan Report ---
CTA CHEST WITH IV CONTRAST INDICATION: sob. hypoxia. TECHNIQUE: Axial CT images were obtained through the chest after injection of IV contrast. 3 plane MIP reconstru ctions were produced. All CT scans at this location are performed using CT dose reduction for ALARA b y means of automated exposure control. COMPARISON: CTA chest 04/23/2018. FINDINGS: Pulmonary Arteries: No acute, occlusive DVT is seen. There is chronic PTE within segmental left upper lobe pulmonary artery (as seen on series 2 image 115). This had a similar appearance on the remote p rior exam. Thoracic Aorta: No acute abnormality. Heart: Normal. Coronary Arteries: No significant calcification. Lungs: No acute air space or interstitial disease. There are mild atelectatic changes in the dependen t lung bases. Pleura: No pleural effusion. No pneumothorax. Lymph Nodes: No significant adenopathy. Additional Findings: None. Upper Abdomen: No acute findings. Skeletal Structures: No significant osseous abnormality. IMPRESSION: 1. No acute PTE. There is chronic nonocclusive PTE within a single segmental left upper lobe pulmonar y artery. The appearance is similar to the remote prior exam from 04/23/2018. Previously seen occlusi ve PTE in the right lower lobe has resolved. 2. Mild atelectatic changes in the bases. Lungs are otherwise clear. Signer Name: John Zhu MD Signed: 01/11/2019 5:41 PM Workstation Name: [id number]
[2019-01-11] MEDS ORDERED: HEPARIN 10,000 UNITS/10 ML IV ONE (17:53)
[2019-01-11] MEDS ORDERED: DILAUDID IV ONE (17:56)
[2019-01-11 18:49] LABS: Hematocrit 38.5 % (30.3-42.9); Hemoglobin 12.6 gm/dl (10.1-14.3)
[2019-01-11 18:58] LABS: INR 0.98 (0.87-1.13)
[2019-01-11 18:59] LABS: Partial Thromboplastin Time 22.9 Sec. (24.2-36.6)
[2019-01-11] MEDS: HEPARIN/ 0.45% NACL-25,000 UNIT/500 ML 25,000 UNIT/500 ML BAG IV SCH (19:01)
[2019-01-11] MEDS ORDERED: APRESOLINE IV ONE (20:12)
[2019-01-11] MEDS ORDERED: APRESOLINE ONE (20:37)
[2019-01-11] MEDS: PERCOCET 5/325 PO PRN (23:30)
--- NOTE | 2019-01-11 23:50 | History and Physical Report ---
History of Present Illness Date of examination: 01/11/19 Date of admission: 01/11/19 17:57 Chief complaint: Shortness of breath for 2 days History of present illness: 38-year-old female that presents emergency room with complaints of shortness of breath and dyspnea on exertion as well as an asthma attack. Patient states she has been taking her asthma medications nothing is helping. Patient states she took nebs at home with no relief. Patient was given nebulizer treatment en route by EMS with no relief. Patient denies chest pain. . Patient denies syncope. Patient denies headache. Patient denies blurry vision. Patient denies lightheadedness. Patient states she is having lower extremity edema. No cough. Wheezing present. No recent travel. Shortness of breath for 2 days Past Medical History Hypertension: Yes Pulmonary Embolism: Yes (right 2018) Headaches / Migraines: Yes Asthma: Yes Additional medical history: DJD lumbar region Surgical History Additional Surgical History: x 4, hernia repair, D&C Family history Htn Social History Smoking Status: Never Smoker Substance Use Type: Alcohol Medications Home Medications: Home Medications Medication Instructions Recorded Confirmed Last Taken Type Remeron 30 mg PO HS 04/23/18 01/11/19 Unknown History traZODone 150 mg PO HS 04/23/18 01/11/19 Unknown History Losartan 100 mg PO DAILY #30 04/25/18 01/11/19 Unknown Rx amLODIPine 10 mg PO DAILY #30 04/25/18 05/11/18 Unknown Rx amLODIPine [Norvasc] 10 mg PO DAILY #30 tablet 05/16/18 01/11/19 Unknown Rx oxyCODONE /ACETAMINOPHEN [Percocet 2 tab PO Q6H PRN #20 tablet 05/16/18 01/11/19 Unknown Rx 5/325 mg] Lopressor TAB 25 mg PO BID #60 06/29/18 01/11/19 Unknown Rx Review of Systems ROS: Stated complaint: ASTHMA Other details as noted in HPI Constitutional: denies: chills, fever Eyes: denies: eye pain, eye discharge, vision change ENT: denies: ear pain, throat pain Respiratory: cough, shortness of breath, SOB with exertion, SOB at rest, wheezing Cardiovascular: dyspnea on exertion, edema. denies: chest pain, palpitations Endocrine: no symptoms reported Gastrointestinal: denies: abdominal pain, nausea, diarrhea Genitourinary: denies: urgency, dysuria, discharge Musculoskeletal: denies: back pain, joint swelling, arthralgia Skin: denies: rash, lesions Neurological: denies: headache, weakness, paresthesias Psychiatric: denies: anxiety, depression Hematological/Lymphatic: denies: easy bleeding, easy bruising Medications and Allergies Allergies Allergy/AdvReac Type Severity Reaction Status Date / Time No Known Allergies Allergy Verified 01/09/19 13:50 Home Medications Medication Instructions Recorded Confirmed Last Taken Type Remeron 30 mg PO HS 04/23/18 01/11/19 Unknown History traZODone 150 mg PO HS 04/23/18 01/11/19 Unknown History Losartan 100 mg PO DAILY #30 04/25/18 01/11/19 Unknown Rx amLODIPine [Norvasc] 10 mg PO DAILY #30 tablet 05/16/18 01/11/19 Unknown Rx oxyCODONE /ACETAMINOPHEN [Percocet 2 tab PO Q6H PRN #20 tablet 05/16/18 01/11/19 Unknown Rx 5/325 mg] Lopressor TAB 25 mg PO BID #60 06/29/18 01/11/19 Unknown Rx Citalopram Hydrobromide [Celexa] 40 mg PO DAILY 01/11/19 01/11/19 Unknown History Active Meds: Active Medications Hydralazine HCl (Apresoline) 10 mg IV Q4HR PRN PRN Reason: Blood Pressure Heparin Sodium/Sodium Chloride (Heparin/ 0.45% Nacl-25,000 Unit/500 Ml) 25,000 unit in 500 mls @ 30 mls/hr IV TITR FROY; Protocol Last Admin: 01/11/19 19:01 Dose: 1,500 units/hr, 30 mls/hr Documented by: Oxycodone/Acetaminophen (Percocet 5/325) 2 tab PO Q6H PRN PRN Reason: Pain, Moderate (4-6) Last Admin: 01/11/19 23:30 Dose: 2 tab Documented by: Exam - Constitutional Vitals: Temp Pulse Resp BP Pulse Ox 97.5 F L 95 H 20 165/105 95 01/11/19 23:39 01/11/19 23:39 01/11/19 23:39 01/11/19 23:39 01/11/19 23:39 General appearance: Present: mild distress, well-nourished - EENT Eyes: Present: PERRL ENT: hearing intact, clear oral mucosa - Neck Neck: Present: supple, normal ROM - Respiratory Respiratory effort: normal Respiratory: bilateral: CTA, rhonchi, wheezing - Cardiovascular Heart rate: 101 Rhythm: regular Heart Sounds: Present: S1 & S2. Absent: rub, click - Extremities Extremities: no ischemia, pulses intact, pulses symmetrical, No edema Peripheral Pulses: within normal limits - Abdominal General gastrointestinal: Present: soft, non-tender, non-distended, normal bowel sounds Female genitourinary: Present: normal - Rectal Rectal Exam: deferred - Integumentary Integumentary: Present: clear, warm, dry - Musculoskeletal Musculoskeletal: gait normal, strength equal bilaterally - Psychiatric Psychiatric: appropriate mood/affect, intact judgment & insight - Neurologic Neurologic: CNII-XII intact, moves all extremities - Allied Health Allied health notes reviewed: nursing, case management Results - Labs CBC & Chem 7: 01/11/19 18:15 01/11/19 13:34 Labs: Laboratory Last Values WBC 6.9 K/mm3 (4.5-11.0) 01/11/19 11:55 RBC 4.26 M/mm3 (3.65-5.03) 01/11/19 11:55 Hgb 12.6 gm/dl (10.1-14.3) 01/11/19 18:15 Hct 38.5 % (30.3-42.9) 01/11/19 18:15 MCV 83 fl (79-97) 01/11/19 11:55 MCH 27 pg (28-32) L 01/11/19 11:55 MCHC 33 % (30-34) 01/11/19 11:55 RDW 17.3 % (13.2-15.2) H 01/11/19 11:55 Plt Count 281 K/mm3 (140-440) 01/11/19 18:15 Lymph % (Auto) 30.2 % (13.4-35.0) 01/11/19 11:55 [place] % (Auto) 8.0 % (0.0-7.3) H 01/11/19 11:55 Eos % (Auto) 1.3 % (0.0-4.3) 01/11/19 11:55 Baso % (Auto) 1.5 % (0.0-1.8) 01/11/19 11:55 Lymph # 2.1 K/mm3 (1.2-5.4) 01/11/19 11:55 [place] # 0.6 K/mm3 (0.0-0.8) 01/11/19 11:55 Eos # 0.1 K/mm3 (0.0-0.4) 01/11/19 11:55 Baso # 0.1 K/mm3 (0.0-0.1) 01/11/19 11:55 Seg Neutrophils % 59.0 % (40.0-70.0) 01/11/19 11:55 Seg Neutrophils # 4.1 K/mm3 (1.8-7.7) 01/11/19 11:55 PT 12.7 Sec. (12.2-14.9) 01/11/19 18:15 INR 0.98 (0.87-1.13) 01/11/19 18:15 APTT 22.9 Sec. (24.2-36.6) L 01/11/19 18:15 Sodium 141 mmol/L (137-145) 01/11/19 13:34 Potassium 3.6 mmol/L (3.6-5.0) D 01/11/19 13:34 Chloride 100.8 mmol/L (98-107) 01/11/19 13:34 Carbon Dioxide 28 mmol/L (22-30) 01/11/19 13:34 16 mmol/L 01/11/19 13:34 BUN 11 mg/dL (7-17) 01/11/19 13:34 0.8 mg/dL (0.7-1.2) 01/11/19 13:34 Estimated GFR > 60 ml/min 01/11/19 13:34 14 % 01/11/19 13:34 Glucose 107 mg/dL (65-100) H 01/11/19 13:34 Calcium 8.9 mg/dL (8.4-10.2) 01/11/19 13:34 0.40 mg/dL (0.1-1.2) 01/11/19 13:34 AST 13 units/L (5-40) 01/11/19 13:34 ALT 10 units/L (7-56) 01/11/19 13:34 120 units/L (35-129) 01/11/19 13:34 130 units/L (30-135) 01/11/19 15:14 CK-MB (CK-2) 1.4 ng/mL (0.0-4.0) 01/11/19 15:14 CK-MB (CK-2) Rel Index 1.0 (0-4) 01/11/19 15:14 < 0.010 ng/mL (0.00-0.029) 01/11/19 15:14 NT-Pro-B Natriuret Pep 211.8 pg/mL (0-450) 01/11/19 13:34 7.8 g/dL (6.3-8.2) 01/11/19 13:34 4.3 g/dL (3.9-5) 01/11/19 13:34 1.2 % 01/11/19 13:34 Short CBC 01/11/19 01/11/19 Range/Units 11:55 18:15 WBC 6.9 (4.5-11.0) K/mm3 Hgb 11.6 12.6 (10.1-14.3) gm/dl Hct 35.3 38.5 (30.3-42.9) % Plt Count 275 281 (140-440) K/mm3 BMP 01/11/19 01/11/19 11:55 13:34 Sodium TNR 141 Potassium TNR 3.6 D Chloride TNR 100.8 Carbon Dioxide TNR 28 BUN TNR 11 Creatinine TNR 0.8 Glucose TNR 107 H Calcium TNR 8.9 Cardiac Enzymes 01/11/19 Range/Units 15:14 Total Creatine Kinase 130 (30-135) units/L CK-MB (CK-2) 1.4 (0.0-4.0) ng/mL Troponin T < 0.010 (0.00-0.029) ng/mL Liver Function 01/11/19 01/11/19 Range/Units 11:55 13:34 Total Bilirubin TNR 0.40 AST TNR 13 ALT TNR 10 Alkaline Phosphatase Not Reportable 120 Albumin TNR 4.3 - Imaging and Cardiology EKG: report reviewed (sinus tachycardia heart rate of 101 per minute low voltage) Imaging and Cardiology: CT angiogram or chest IMPRESSION: 1. No acute PTE. There is chronic nonocclusive PTE within a single segmental left upper lobe pulmonary artery. The appearance is similar to the remote prior exam from 04/23/2018. Previously seen occlusive PTE in the right lower lobe has resolved. 2. Mild atelectatic changes in the bases. Lungs are otherwise clear. Assessment and Plan Advance Directives: Yes (full code) VTE prophylaxis?: Chemical Plan of care discussed with patient/family: Yes - Patient Problems (1) Pulmonary embolism Current Visit: Yes Status: Chronic Plan to address problem: There is chronic PE resolving IV heparin and initiated by ER physician Patient to be bridged to [facility] tomorrow and be discharged (2) Asthma Current Visit: Yes Status: Acute Qualifiers: Asthma severity: mild Plan to address problem: Bronchodilators when necessary (3) DVT prophylaxis Current Visit: Yes Status: Acute Plan to address problem: On heparin and GI prophylaxis
[2019-01-12] MEDS: APRESOLINE IV PRN ×2 (00:17→12:16)
[2019-01-12] MEDS: DESYREL PO SCH ×2 (00:35→22:23)
[2019-01-12] MEDS: REMERON PO SCH ×2 (00:35→22:23)
[2019-01-12] MEDS: PERCOCET 5/325 PO PRN ×2 (06:25→23:07)
[2019-01-12] MEDS ORDERED: NON-FORMULARY (Citalopram Hydrobromide [Celexa] 40 MG) PO SCH (10:00)
[2019-01-12] MEDS: celeXA PO SCH (11:06)
--- NOTE | 2019-01-12 11:37 | Consultation ---
History of Present Illness Consult date: 01/12/19 Requesting physician: ISABEL ZELAYA Reason for consult: dyspnea, chest pain, pulmonary embolism History of present illness: 38 y/o female with prior history of PE in March of 2018, was treated with eliquis for only one month secondary to cost. Presents yesterday with shortness of breath and found to have chronic nonocclusive PE. Pulmonary consulted for PE. Past History Past Medical History: DVT (and PE in the past), hypertension, other (asthma) Medications and Allergies Allergies Allergy/AdvReac Type Severity Reaction Status Date / Time No Known Allergies Allergy Verified 01/09/19 13:50 Home Medications Medication Instructions Recorded Confirmed Last Taken Type Remeron 30 mg PO HS 04/23/18 01/11/19 Unknown History traZODone 150 mg PO HS 04/23/18 01/11/19 Unknown History Losartan 100 mg PO DAILY #30 04/25/18 01/11/19 Unknown Rx amLODIPine [Norvasc] 10 mg PO DAILY #30 tablet 05/16/18 01/11/19 Unknown Rx oxyCODONE /ACETAMINOPHEN [Percocet 2 tab PO Q6H PRN #20 tablet 05/16/18 01/11/19 Unknown Rx 5/325 mg] Lopressor TAB 25 mg PO BID #60 06/29/18 01/11/19 Unknown Rx Citalopram Hydrobromide [Celexa] 40 mg PO DAILY 01/11/19 01/11/19 Unknown History Active Meds: Active Medications Citalopram Hydrobromide (Celexa) 40 mg PO DAILY [facility] Last Admin: 01/12/19 11:06 Dose: 40 mg Documented by: Hydralazine HCl (Apresoline) 10 mg IV Q4HR PRN PRN Reason: Blood Pressure Last Admin: 01/12/19 00:17 Dose: 10 mg Documented by: Heparin Sodium/Sodium Chloride (Heparin/ 0.45% Nacl-25,000 Unit/500 Ml) 25,000 unit in 500 mls @ 30 mls/hr IV TITR [facility]; Protocol Last Titration: 01/12/19 04:01 Dose: 1,250 units/hr, 25 mls/hr Documented by: Mirtazapine (Remeron) 30 mg PO QHS [facility] Last Admin: 01/12/19 00:35 Dose: 30 mg Documented by: Morphine Sulfate (Morphine) 2 mg IV Q4H PRN PRN Reason: Pain, Moderate (4-6) Oxycodone/Acetaminophen (Percocet 5/325) 2 tab PO Q6H PRN PRN Reason: Pain, Moderate (4-6) Last Admin: 01/12/19 06:25 Dose: 2 tab Documented by: Trazodone HCl (Desyrel) 150 mg PO QHS [facility] Last Admin: 01/12/19 00:35 Dose: 150 mg Documented by: Review of Systems All systems: negative Physical Examination Vital signs: Vital Signs Pulse Ox 93 01/11/19 11:44 General appearance: no acute distress, alert, other (morbidly obese) Eyes: non-icteric ENT: oropharynx moist Neck: supple, other (large in circumference) Effort: normal Ascultation: Bilateral: diminished breath sounds (secondary to body habitus) Percussion: Bilateral: not dull Tactile fremitus: Bilateral: normal Cardiovascular: regular rate and rhythm Gastrointestinal: normoactive bowel sounds, soft Results - Laboratory Findings CBC and BMP: 01/11/19 18:15 01/11/19 13:34 PT/INR, D-dimer PT 12.7 Sec. (12.2-14.9) 01/11/19 18:15 INR 0.98 (0.87-1.13) 01/11/19 18:15 Abnormal lab findings: Abnormal Labs 01/11/19 01/11/19 01/11/19 11:55 13:34 18:15 MCH 27 L RDW 17.3 H [place] % (Auto) 8.0 H APTT 22.9 L Heparin Anti-Xa Level Glucose 107 H 01/12/19 01/12/19 00:33 09:51 MCH RDW [place] % (Auto) APTT Heparin Anti-Xa Level 1.02 H 0.21 L Glucose - Diagnostic Findings CT scan - chest: report reviewed, image reviewed Assessment and Plan 38 y/o morbidly obese female with VTE 1. Patient cannot recall in prodrome or inciting incidence that led to clot in March. Most likely developed new clots after being off unaffordable mediation. Patient will most likely need therapy indefinitely. Suggest coumadin given her cost constraints and can ask CM if they know of any other means of help for her. Will sign off at this time. Continue heparin bridge until coumadin is therapeutic. Suggest going ahead and starting.
[2019-01-12] MEDS: MORPHINE IV PRN ×2 (11:49→18:02)
[2019-01-12] MEDS: HEPARIN/ 0.45% NACL-25,000 UNIT/500 ML 25,000 UNIT/500 ML BAG IV SCH (15:11)
--- NOTE | 2019-01-12 18:06 | Progress Note ---
Assessment and Plan Assessment and plan: Acute Pulmonary embolism On chronic. She had pulmonary embolism in Mar last year took Eliquis for only 1 month because of cost. Now on heparin drip Pulm consulted, following Will start heparin Hypertension. Monitor BP Morbid Obesity I counseled her on diet and exercise Full code status History Interval history: Shortness of breath Hospitalist Physical - Physical exam Narrative exam: Gen: Not in acute distress, lying in bed, morbidly obese HEENT: Normocephalic, atraumatic Neck: supple, no JVD Heart: S1 and S2 reg, no murmurs, rubs or gallop Lungs: Clear to auscultation, no crackles or wheeze Abd: soft, non tender, non distended, normal BS Ext: No edema, no clubbing, no cyanosis Neuro:awake,alert, Oriented X 3. No focal signs - Constitutional Vitals: Temp Pulse Resp BP Pulse Ox 97.6 F 87 20 165/106 96 01/12/19 04:16 01/12/19 08:00 01/12/19 06:25 01/12/19 12:16 01/12/19 04:19 General appearance: Present: obese Results - Labs CBC & Chem 7: 01/11/19 18:15 01/11/19 13:34 Labs: Laboratory Last Values WBC 6.9 K/mm3 (4.5-11.0) 01/11/19 11:55 RBC 4.26 M/mm3 (3.65-5.03) 01/11/19 11:55 Hgb 12.6 gm/dl (10.1-14.3) 01/11/19 18:15 Hct 38.5 % (30.3-42.9) 01/11/19 18:15 MCV 83 fl (79-97) 01/11/19 11:55 MCH 27 pg (28-32) L 01/11/19 11:55 MCHC 33 % (30-34) 01/11/19 11:55 RDW 17.3 % (13.2-15.2) H 01/11/19 11:55 Plt Count 281 K/mm3 (140-440) 01/11/19 18:15 Lymph % (Auto) 30.2 % (13.4-35.0) 01/11/19 11:55 [place] % (Auto) 8.0 % (0.0-7.3) H 01/11/19 11:55 Eos % (Auto) 1.3 % (0.0-4.3) 01/11/19 11:55 Baso % (Auto) 1.5 % (0.0-1.8) 01/11/19 11:55 Lymph # 2.1 K/mm3 (1.2-5.4) 01/11/19 11:55 [place] # 0.6 K/mm3 (0.0-0.8) 01/11/19 11:55 Eos # 0.1 K/mm3 (0.0-0.4) 01/11/19 11:55 Baso # 0.1 K/mm3 (0.0-0.1) 01/11/19 11:55 Seg Neutrophils % 59.0 % (40.0-70.0) 01/11/19 11:55 Seg Neutrophils # 4.1 K/mm3 (1.8-7.7) 01/11/19 11:55 PT 12.7 Sec. (12.2-14.9) 01/11/19 18:15 INR 0.98 (0.87-1.13) 01/11/19 18:15 APTT 22.9 Sec. (24.2-36.6) L 01/11/19 18:15 Heparin Anti-Xa Level 0.43 U.I./ml (0.3-0.7) 01/12/19 16:57 Sodium 141 mmol/L (137-145) 01/11/19 13:34 Potassium 3.6 mmol/L (3.6-5.0) D 01/11/19 13:34 Chloride 100.8 mmol/L (98-107) 01/11/19 13:34 Carbon Dioxide 28 mmol/L (22-30) 01/11/19 13:34 16 mmol/L 01/11/19 13:34 BUN 11 mg/dL (7-17) 01/11/19 13:34 0.8 mg/dL (0.7-1.2) 01/11/19 13:34 Estimated GFR > 60 ml/min 01/11/19 13:34 14 % 01/11/19 13:34 Glucose 107 mg/dL (65-100) H 01/11/19 13:34 Calcium 8.9 mg/dL (8.4-10.2) 01/11/19 13:34 0.40 mg/dL (0.1-1.2) 01/11/19 13:34 AST 13 units/L (5-40) 01/11/19 13:34 ALT 10 units/L (7-56) 01/11/19 13:34 120 units/L (35-129) 01/11/19 13:34 130 units/L (30-135) 01/11/19 15:14 CK-MB (CK-2) 1.4 ng/mL (0.0-4.0) 01/11/19 15:14 CK-MB (CK-2) Rel Index 1.0 (0-4) 01/11/19 15:14 < 0.010 ng/mL (0.00-0.029) 01/11/19 15:14 NT-Pro-B Natriuret Pep 211.8 pg/mL (0-450) 01/11/19 13:34 7.8 g/dL (6.3-8.2) 01/11/19 13:34 4.3 g/dL (3.9-5) 01/11/19 13:34 1.2 % 01/11/19 13:34 Active Medications - Current Medications Current Medications: Generic Name Dose Route Start Last Admin Trade Name Freq PRN Reason Stop Dose Admin Citalopram Hydrobromide 40 mg 01/12/19 10:00 01/12/19 11:06 Celexa PO 40 mg DAILY [facility] Administration Hydralazine HCl 10 mg 01/11/19 23:24 01/12/19 12:16 Apresoline IV 10 mg Q4HR PRN Administration Blood Pressure Heparin Sodium/Sodium Chloride 25,000 unit in 500 mls @ 30 mls/hr 01/11/19 18:30 01/12/19 15:11 Heparin/ 0.45% Nacl-25,000 Unit/500 Ml IV 1,350 units/hr TITR [facility] 27 mls/hr Administration Protocol 1,500 UNITS/HR Mirtazapine 30 mg 01/12/19 00:30 01/12/19 00:35 Remeron PO 30 mg QHS [facility] Administration Morphine Sulfate 2 mg 01/12/19 11:26 01/12/19 18:02 Morphine IV 2 mg Q4H PRN Administration Pain, Moderate (4-6) Oxycodone/Acetaminophen 2 tab 01/11/19 23:13 01/12/19 06:25 Percocet 5/325 PO 2 tab Q6H PRN Administration Pain, Moderate (4-6) Trazodone HCl 150 mg 01/12/19 00:30 01/12/19 00:35 Desyrel PO 150 mg QHS [facility] Administration
[2019-01-12] MEDS ORDERED: REMERON 30 MG PO SCH (22:00)
[2019-01-12] MEDS ORDERED: NON-FORMULARY (Trazodone 150 MG) PO SCH (22:00)
[2019-01-12] MEDS: COUMADIN PO SCH (22:30)
[2019-01-13] MEDS: PERCOCET 5/325 PO PRN ×2 (05:46→14:20)
[2019-01-13 06:19] LABS: Hematocrit 35.6 % (30.3-42.9); Hemoglobin 11.4 gm/dl (10.1-14.3)
[2019-01-13 06:32] LABS: INR 1.02 (0.87-1.13)
--- NOTE | 2019-01-13 08:59 | Progress Note ---
Assessment and Plan Assessment and plan: Acute Pulmonary embolism On chronic. She had pulmonary embolism in Mar last year took Eliquis for only 1 month because of cost. Now on heparin drip Pulm consulted, following Started on Coumadin dc home when INR >2 Hypertension. Monitor BP Morbid Obesity I counseled her on diet and exercise Full code status History Interval history: Shortness of breath Hospitalist Physical - Physical exam Narrative exam: Gen: Not in acute distress, lying in bed, morbidly obese HEENT: Normocephalic, atraumatic Neck: supple, no JVD Heart: S1 and S2 reg, no murmurs, rubs or gallop Lungs: Clear to auscultation, no crackles or wheeze Abd: soft, non tender, non distended, normal BS Ext: No edema, no clubbing, no cyanosis Neuro:awake,alert, Oriented X 3. No focal signs - Constitutional Vitals: Temp Pulse Resp BP Pulse Ox 98.8 F 74 16 140/80 100 01/13/19 04:00 01/13/19 04:00 01/13/19 04:00 01/13/19 04:00 01/13/19 04:00 General appearance: Present: obese Results - Labs CBC & Chem 7: 01/13/19 05:13 01/11/19 13:34 Labs: Laboratory Last Values WBC 6.9 K/mm3 (4.5-11.0) 01/11/19 11:55 RBC 4.26 M/mm3 (3.65-5.03) 01/11/19 11:55 Hgb 11.4 gm/dl (10.1-14.3) 01/13/19 05:13 Hct 35.6 % (30.3-42.9) 01/13/19 05:13 MCV 83 fl (79-97) 01/11/19 11:55 MCH 27 pg (28-32) L 01/11/19 11:55 MCHC 33 % (30-34) 01/11/19 11:55 RDW 17.3 % (13.2-15.2) H 01/11/19 11:55 Plt Count 265 K/mm3 (140-440) 01/13/19 05:13 Lymph % (Auto) 30.2 % (13.4-35.0) 01/11/19 11:55 [place] % (Auto) 8.0 % (0.0-7.3) H 01/11/19 11:55 Eos % (Auto) 1.3 % (0.0-4.3) 01/11/19 11:55 Baso % (Auto) 1.5 % (0.0-1.8) 01/11/19 11:55 Lymph # 2.1 K/mm3 (1.2-5.4) 01/11/19 11:55 [place] # 0.6 K/mm3 (0.0-0.8) 01/11/19 11:55 Eos # 0.1 K/mm3 (0.0-0.4) 01/11/19 11:55 Baso # 0.1 K/mm3 (0.0-0.1) 01/11/19 11:55 Seg Neutrophils % 59.0 % (40.0-70.0) 01/11/19 11:55 Seg Neutrophils # 4.1 K/mm3 (1.8-7.7) 01/11/19 11:55 PT 13.1 Sec. (12.2-14.9) 01/13/19 05:13 INR 1.02 (0.87-1.13) 01/13/19 05:13 APTT 22.9 Sec. (24.2-36.6) L 01/11/19 18:15 Heparin Anti-Xa Level 0.43 U.I./ml (0.3-0.7) 01/12/19 16:57 Sodium 141 mmol/L (137-145) 01/11/19 13:34 Potassium 3.6 mmol/L (3.6-5.0) D 01/11/19 13:34 Chloride 100.8 mmol/L (98-107) 01/11/19 13:34 Carbon Dioxide 28 mmol/L (22-30) 01/11/19 13:34 16 mmol/L 01/11/19 13:34 BUN 11 mg/dL (7-17) 01/11/19 13:34 0.8 mg/dL (0.7-1.2) 01/11/19 13:34 Estimated GFR > 60 ml/min 01/11/19 13:34 14 % 01/11/19 13:34 Glucose 107 mg/dL (65-100) H 01/11/19 13:34 Calcium 8.9 mg/dL (8.4-10.2) 01/11/19 13:34 0.40 mg/dL (0.1-1.2) 01/11/19 13:34 AST 13 units/L (5-40) 01/11/19 13:34 ALT 10 units/L (7-56) 01/11/19 13:34 120 units/L (35-129) 01/11/19 13:34 130 units/L (30-135) 01/11/19 15:14 CK-MB (CK-2) 1.4 ng/mL (0.0-4.0) 01/11/19 15:14 CK-MB (CK-2) Rel Index 1.0 (0-4) 01/11/19 15:14 < 0.010 ng/mL (0.00-0.029) 01/11/19 15:14 NT-Pro-B Natriuret Pep 211.8 pg/mL (0-450) 01/11/19 13:34 7.8 g/dL (6.3-8.2) 01/11/19 13:34 4.3 g/dL (3.9-5) 01/11/19 13:34 1.2 % 01/11/19 13:34 Active Medications - Current Medications Current Medications: Generic Name Dose Route Start Last Admin Trade Name Freq PRN Reason Stop Dose Admin Citalopram Hydrobromide 40 mg 01/12/19 10:00 01/12/19 11:06 Celexa PO 40 mg DAILY [facility] Administration Hydralazine HCl 10 mg 01/11/19 23:24 01/12/19 12:16 Apresoline IV 10 mg Q4HR PRN Administration Blood Pressure Heparin Sodium/Sodium Chloride 25,000 unit in 500 mls @ 30 mls/hr 01/11/19 18:30 01/12/19 15:11 Heparin/ 0.45% Nacl-25,000 Unit/500 Ml IV 1,350 units/hr TITR [facility] 27 mls/hr Administration Protocol 1,500 UNITS/HR Mirtazapine 30 mg 01/12/19 00:30 01/12/19 22:23 Remeron PO 30 mg QHS [facility] Administration Morphine Sulfate 2 mg 01/12/19 11:26 01/12/19 18:02 Morphine IV 2 mg Q4H PRN Administration Pain, Moderate (4-6) Oxycodone/Acetaminophen 2 tab 01/11/19 23:13 01/13/19 05:46 Percocet 5/325 PO 2 tab Q6H PRN Administration Pain, Moderate (4-6) Trazodone HCl 150 mg 01/12/19 00:30 01/12/19 22:23 Desyrel PO 150 mg QHS [facility] Administration Warfarin Sodium 10 mg 01/12/19 20:00 01/12/19 22:30 Coumadin PO 10 mg DAILY@1700 [facility] Administration
[2019-01-13] MEDS: celeXA PO SCH (09:28)
[2019-01-13] MEDS: MORPHINE IV PRN ×2 (09:28→20:09)
[2019-01-13] MEDS: APRESOLINE IV PRN (10:17)
[2019-01-13] MEDS: LOPRESSOR PO SCH ×2 (11:25→22:50)
[2019-01-13] MEDS: NORVASC PO SCH (11:25)
[2019-01-13] MEDS: HEPARIN/ 0.45% NACL-25,000 UNIT/500 ML 25,000 UNIT/500 ML BAG IV SCH (11:26)
[2019-01-13] MEDS ORDERED: PROVENTIL IH PRN (15:46)
[2019-01-13] MEDS: COUMADIN PO SCH (17:30)
[2019-01-13] MEDS: DESYREL PO SCH (22:50)
[2019-01-13] MEDS: REMERON PO SCH (22:50)
[2019-01-14] MEDS: PERCOCET 5/325 PO PRN ×2 (01:44→18:26)
[2019-01-14] MEDS: MORPHINE IV PRN ×2 (05:13→11:30)
[2019-01-14] MEDS: HEPARIN/ 0.45% NACL-25,000 UNIT/500 ML 25,000 UNIT/500 ML BAG IV SCH (05:14)
[2019-01-14] MEDS: DUONEB *Not for PRN Use IH SCH ×3 (07:54→20:01)
[2019-01-14 08:19] LABS: INR 1.09 (0.87-1.13)
--- NOTE | 2019-01-14 09:48 | Progress Note ---
Assessment and Plan Assessment and plan: Acute Pulmonary embolism On chronic. She had pulmonary embolism in Mar last year took Eliquis for only 1 month because of cost. Now on heparin drip Pulm consulted, following Started on Coumadin dc home when INR >2 Hypertension. Monitor BP Morbid Obesity I counseled her on diet and exercise Full code status To dc home on Coumadin History Interval history: Shortness of breath, improved No chest pain Hospitalist Physical - Physical exam Narrative exam: Gen: Not in acute distress, lying in bed, morbidly obese HEENT: Normocephalic, atraumatic Neck: supple, no JVD Heart: S1 and S2 reg, no murmurs, rubs or gallop Lungs: Clear to auscultation, no crackles or wheeze Abd: soft, non tender, non distended, normal BS Ext: No edema, no clubbing, no cyanosis Neuro:awake,alert, Oriented X 3. No focal signs - Constitutional Vitals: Temp Pulse Resp BP Pulse Ox 98.6 F 70 20 146/92 93 01/14/19 07:31 01/14/19 07:31 01/14/19 07:31 01/14/19 07:31 01/14/19 07:31 General appearance: Present: obese Results - Labs CBC & Chem 7: 01/13/19 05:13 01/11/19 13:34 Labs: Laboratory Last Values WBC 6.9 K/mm3 (4.5-11.0) 01/11/19 11:55 RBC 4.26 M/mm3 (3.65-5.03) 01/11/19 11:55 Hgb 11.4 gm/dl (10.1-14.3) 01/13/19 05:13 Hct 35.6 % (30.3-42.9) 01/13/19 05:13 MCV 83 fl (79-97) 01/11/19 11:55 MCH 27 pg (28-32) L 01/11/19 11:55 MCHC 33 % (30-34) 01/11/19 11:55 RDW 17.3 % (13.2-15.2) H 01/11/19 11:55 Plt Count 265 K/mm3 (140-440) 01/13/19 05:13 Lymph % (Auto) 30.2 % (13.4-35.0) 01/11/19 11:55 [place] % (Auto) 8.0 % (0.0-7.3) H 01/11/19 11:55 Eos % (Auto) 1.3 % (0.0-4.3) 01/11/19 11:55 Baso % (Auto) 1.5 % (0.0-1.8) 01/11/19 11:55 Lymph # 2.1 K/mm3 (1.2-5.4) 01/11/19 11:55 [place] # 0.6 K/mm3 (0.0-0.8) 01/11/19 11:55 Eos # 0.1 K/mm3 (0.0-0.4) 01/11/19 11:55 Baso # 0.1 K/mm3 (0.0-0.1) 01/11/19 11:55 Seg Neutrophils % 59.0 % (40.0-70.0) 01/11/19 11:55 Seg Neutrophils # 4.1 K/mm3 (1.8-7.7) 01/11/19 11:55 PT 13.8 Sec. (12.2-14.9) 01/14/19 07:39 INR 1.09 (0.87-1.13) 01/14/19 07:39 APTT 22.9 Sec. (24.2-36.6) L 01/11/19 18:15 Heparin Anti-Xa Level 0.52 U.I./ml (0.3-0.7) 01/13/19 22:46 Sodium 141 mmol/L (137-145) 01/11/19 13:34 Potassium 3.6 mmol/L (3.6-5.0) D 01/11/19 13:34 Chloride 100.8 mmol/L (98-107) 01/11/19 13:34 Carbon Dioxide 28 mmol/L (22-30) 01/11/19 13:34 16 mmol/L 01/11/19 13:34 BUN 11 mg/dL (7-17) 01/11/19 13:34 0.8 mg/dL (0.7-1.2) 01/11/19 13:34 Estimated GFR > 60 ml/min 01/11/19 13:34 14 % 01/11/19 13:34 Glucose 107 mg/dL (65-100) H 01/11/19 13:34 Calcium 8.9 mg/dL (8.4-10.2) 01/11/19 13:34 0.40 mg/dL (0.1-1.2) 01/11/19 13:34 AST 13 units/L (5-40) 01/11/19 13:34 ALT 10 units/L (7-56) 01/11/19 13:34 120 units/L (35-129) 01/11/19 13:34 130 units/L (30-135) 01/11/19 15:14 CK-MB (CK-2) 1.4 ng/mL (0.0-4.0) 01/11/19 15:14 CK-MB (CK-2) Rel Index 1.0 (0-4) 01/11/19 15:14 < 0.010 ng/mL (0.00-0.029) 01/11/19 15:14 NT-Pro-B Natriuret Pep 211.8 pg/mL (0-450) 01/11/19 13:34 7.8 g/dL (6.3-8.2) 01/11/19 13:34 4.3 g/dL (3.9-5) 01/11/19 13:34 1.2 % 01/11/19 13:34 Active Medications - Current Medications Current Medications: Generic Name Dose Route Start Last Admin Trade Name Freq PRN Reason Stop Dose Admin Albuterol/Ipratropium 1 ampul 01/14/19 08:00 01/14/19 07:54 Duoneb *Not For Prn Use* IH 1 ampul TIDRT [facility] Administration Amlodipine Besylate 10 mg 01/13/19 10:00 01/13/19 11:25 Norvasc PO 10 mg DAILY [facility] Administration Citalopram Hydrobromide 40 mg 01/12/19 10:00 01/13/19 09:28 Celexa PO 40 mg DAILY [facility] Administration Hydralazine HCl 10 mg 01/11/19 23:24 01/13/19 10:17 Apresoline IV 10 mg Q4HR PRN Administration Blood Pressure Heparin Sodium/Sodium Chloride 25,000 unit in 500 mls @ 30 mls/hr 01/11/19 18:30 01/14/19 05:14 Heparin/ 0.45% Nacl-25,000 Unit/500 Ml IV 1,550 units/hr TITR [facility] 31 mls/hr Administration Protocol 1,500 UNITS/HR Losartan Potassium 100 mg 01/14/19 10:15 Cozaar PO QDAY [facility] Metoprolol Tartrate 25 mg 01/13/19 10:00 01/13/19 22:50 Lopressor PO 25 mg BID [facility] Administration Mirtazapine 30 mg 01/12/19 00:30 01/13/19 22:50 Remeron PO 30 mg QHS [facility] Administration Morphine Sulfate 2 mg 01/12/19 11:26 01/14/19 05:13 Morphine IV 2 mg Q4H PRN Administration Pain, Moderate (4-6) Oxycodone/Acetaminophen 2 tab 01/11/19 23:13 01/14/19 01:44 Percocet 5/325 PO 2 tab Q6H PRN Administration Pain, Moderate (4-6) Trazodone HCl 150 mg 01/12/19 00:30 01/13/19 22:50 Desyrel PO 150 mg QHS [facility] Administration Warfarin Sodium 10 mg 01/12/19 20:00 01/13/19 17:30 Coumadin PO 10 mg DAILY@1700 [facility] Administration Warfarin Sodium 2.5 mg 01/14/19 17:00 Coumadin PO DAILY@1700 [facility]
[2019-01-14] MEDS: LOPRESSOR PO SCH ×2 (10:00→22:20)
[2019-01-14] MEDS: NORVASC PO SCH (10:00)
[2019-01-14] MEDS: celeXA PO SCH (10:18)
[2019-01-14] MEDS: COZAAR PO SCH (10:19)
[2019-01-14] MEDS: COUMADIN PO SCH ×2 (18:28→18:29)
[2019-01-14] MEDS: DESYREL PO SCH (22:20)
[2019-01-15] MEDS: REMERON PO SCH ×2 (00:11→22:38)
[2019-01-15] MEDS: PERCOCET 5/325 PO PRN ×2 (00:11→20:45)
[2019-01-15] MEDS: ZOFRAN IV PRN ×3 (08:15→18:11)
[2019-01-15] MEDS: MORPHINE IV PRN ×3 (08:20→18:11)
[2019-01-15] MEDS: DUONEB *Not for PRN Use IH SCH ×3 (08:53→20:24)
[2019-01-15] MEDS: LOPRESSOR PO SCH ×2 (14:00→22:38)
[2019-01-15] MEDS: COZAAR PO SCH (14:00)
[2019-01-15] MEDS: celeXA PO SCH (14:01)
[2019-01-15] MEDS: HEPARIN/ 0.45% NACL-25,000 UNIT/500 ML 25,000 UNIT/500 ML BAG IV SCH (14:08)
[2019-01-15] MEDS: NORVASC PO SCH (14:17)
[2019-01-15 15:02] LABS: Hematocrit 32.1 % (30.3-42.9); Hemoglobin 10.7 gm/dl (10.1-14.3); Mean Corpuscular HGB Conc 33 % (30-34); Mean Corpuscular Volume 84 fl (79-97); Platelet Count 214 K/mm3 (140-440); Red Blood Count 3.83 M/mm3 (3.65-5.03); Red Cell Distribution Width 16.8 % (13.2-15.2)
[2019-01-15 15:15] LABS: INR 1.29 (0.87-1.13)
[2019-01-15 15:28] LABS: BUN/Creatinine Ratio 21; Blood Urea Nitrogen 15 mg/dL (7-17); Calcium 8.8 mg/dL (8.4-10.2); Hemolysis Index 9
--- NOTE | 2019-01-15 17:19 | Progress Note ---
Assessment and Plan Assessment and plan: Gastroenteritis: Nausea with vomiting ct abd and pelvis zofran Acute Pulmonary embolism On chronic. She had pulmonary embolism in Mar last year took Eliquis for only 1 month because of cost. Now on heparin drip Pulm consulted, following Started on Coumadin dc home when INR >2 Hypertension. Monitor BP Morbid Obesity I counseled her on diet and exercise for 15 mins Full code status To dc home on Coumadin History Interval history: Patient seen and examined, resting comfortable, earlier today reported nausea with vomiting. Hospitalist Physical - Physical exam Narrative exam: Gen: Not in acute distress, lying in bed, morbidly obese HEENT: Normocephalic, atraumatic Neck: supple, no JVD Heart: S1 and S2 reg, no murmurs, rubs or gallop Lungs: Clear to auscultation, no crackles or wheeze Abd: soft, non tender, non distended, normal BS Ext: No edema, no clubbing, no cyanosis Neuro:awake,alert, Oriented X 3. No focal signs - Constitutional Vitals: Temp Pulse Resp BP Pulse Ox 98.0 F 63 22 142/77 91 01/15/19 13:09 01/15/19 14:00 01/15/19 13:09 01/15/19 14:17 01/15/19 13:09 General appearance: Present: obese Results - Labs CBC & Chem 7: 01/15/19 14:26 01/15/19 14:26 Labs: Laboratory Last Values WBC 7.6 K/mm3 (4.5-11.0) 01/15/19 14:26 RBC 3.83 M/mm3 (3.65-5.03) 01/15/19 14:26 Hgb 10.7 gm/dl (10.1-14.3) 01/15/19 14:26 Hct 32.1 % (30.3-42.9) 01/15/19 14:26 MCV 84 fl (79-97) 01/15/19 14:26 MCH 28 pg (28-32) 01/15/19 14:26 MCHC 33 % (30-34) 01/15/19 14:26 RDW 16.8 % (13.2-15.2) H 01/15/19 14:26 Plt Count 214 K/mm3 (140-440) 01/15/19 14:26 Lymph % (Auto) 30.2 % (13.4-35.0) 01/11/19 11:55 [place] % (Auto) 8.0 % (0.0-7.3) H 01/11/19 11:55 Eos % (Auto) 1.3 % (0.0-4.3) 01/11/19 11:55 Baso % (Auto) 1.5 % (0.0-1.8) 01/11/19 11:55 Lymph # 2.1 K/mm3 (1.2-5.4) 01/11/19 11:55 [place] # 0.6 K/mm3 (0.0-0.8) 01/11/19 11:55 Eos # 0.1 K/mm3 (0.0-0.4) 01/11/19 11:55 Baso # 0.1 K/mm3 (0.0-0.1) 01/11/19 11:55 Seg Neutrophils % 59.0 % (40.0-70.0) 01/11/19 11:55 Seg Neutrophils # 4.1 K/mm3 (1.8-7.7) 01/11/19 11:55 PT 15.8 Sec. (12.2-14.9) H 01/15/19 14:26 INR 1.29 (0.87-1.13) H 01/15/19 14:26 APTT 22.9 Sec. (24.2-36.6) L 01/11/19 18:15 Heparin Anti-Xa Level 0.37 U.I./ml (0.3-0.7) 01/14/19 23:04 Sodium 139 mmol/L (137-145) 01/15/19 14:26 Potassium 4.4 mmol/L (3.6-5.0) D 01/15/19 14:26 Chloride 100.5 mmol/L (98-107) 01/15/19 14:26 Carbon Dioxide 30 mmol/L (22-30) 01/15/19 14:26 13 mmol/L 01/15/19 14:26 BUN 15 mg/dL (7-17) 01/15/19 14:26 0.7 mg/dL (0.7-1.2) 01/15/19 14:26 Estimated GFR > 60 ml/min 01/15/19 14:26 21 % 01/15/19 14:26 Glucose 149 mg/dL (65-100) H 01/15/19 14:26 Calcium 8.8 mg/dL (8.4-10.2) 01/15/19 14:26 0.40 mg/dL (0.1-1.2) 01/11/19 13:34 AST 13 units/L (5-40) 01/11/19 13:34 ALT 10 units/L (7-56) 01/11/19 13:34 120 units/L (35-129) 01/11/19 13:34 130 units/L (30-135) 01/11/19 15:14 CK-MB (CK-2) 1.4 ng/mL (0.0-4.0) 01/11/19 15:14 CK-MB (CK-2) Rel Index 1.0 (0-4) 01/11/19 15:14 < 0.010 ng/mL (0.00-0.029) 01/11/19 15:14 NT-Pro-B Natriuret Pep 211.8 pg/mL (0-450) 01/11/19 13:34 7.8 g/dL (6.3-8.2) 01/11/19 13:34 4.3 g/dL (3.9-5) 01/11/19 13:34 1.2 % 01/11/19 13:34 Active Medications - Current Medications Current Medications: Generic Name Dose Route Start Last Admin Trade Name Freq PRN Reason Stop Dose Admin Albuterol/Ipratropium 1 ampul 01/14/19 08:00 01/15/19 13:02 Duoneb *Not For Prn Use* IH 1 ampul TIDRT FROY Administration Amlodipine Besylate 10 mg 01/13/19 10:00 01/15/19 14:17 Norvasc PO Not Given DAILY FROY Citalopram Hydrobromide 40 mg 01/12/19 10:00 01/15/19 14:01 Celexa PO 40 mg DAILY FROY Administration Hydralazine HCl 10 mg 01/11/19 23:24 01/13/19 10:17 Apresoline IV 10 mg Q4HR PRN Administration Blood Pressure Heparin Sodium/Sodium Chloride 25,000 unit in 500 mls @ 30 mls/hr 01/11/19 18:30 01/15/19 14:08 Heparin/ 0.45% Nacl-25,000 Unit/500 Ml IV 1,550 units/hr TITR FROY 31 mls/hr Administration Protocol 1,500 UNITS/HR Losartan Potassium 100 mg 01/14/19 10:15 01/15/19 14:00 Cozaar PO 100 mg QDAY FROY Administration Metoprolol Tartrate 25 mg 01/13/19 10:00 01/15/19 14:00 Lopressor PO 25 mg BID FROY Administration Mirtazapine 30 mg 01/12/19 00:30 01/15/19 00:11 Remeron PO 30 mg QHS [facility] Administration Morphine Sulfate 2 mg 01/12/19 11:26 01/15/19 13:59 Morphine IV 2 mg Q4H PRN Administration Pain, Moderate (4-6) Ondansetron HCl 4 mg 01/15/19 07:55 01/15/19 13:59 Zofran IV 4 mg Q4H PRN Administration Nausea And Vomiting Oxycodone/Acetaminophen 2 tab 01/11/19 23:13 01/15/19 00:11 Percocet 5/325 PO 2 tab Q6H PRN Administration Pain, Moderate (4-6) Trazodone HCl 150 mg 01/12/19 00:30 01/14/19 22:20 Desyrel PO 150 mg QHS [facility] Administration Warfarin Sodium 10 mg 01/12/19 20:00 01/14/19 18:28 Coumadin PO 10 mg DAILY@1700 [facility] Administration Warfarin Sodium 2.5 mg 01/14/19 17:00 01/14/19 18:29 Coumadin PO 2.5 mg DAILY@1700 [facility] Administration Nutrition/Malnutrition Assess - Dietary Evaluation Nutrition/Malnutrition Findings: Nutrition Notes Start: 01/14/19 14:12 Freq: Status: Active Protocol: Document 01/15/19 11:47 RM (Rec: 01/15/19 11:50 RM [id number]) Nutrition Notes Initial or Follow up Brief Note Subjective/Other Information Consulted for Coumadin/Vitamin K diet education. Pt stated that she has already been educated and has no further questions. - Attestation Statement I have reviewed and agreed w/ Malnutrition eval & tx plan: Yes
[2019-01-15] MEDS: COUMADIN PO SCH ×2 (17:23)
--- NOTE | 2019-01-15 19:43 | Cat Scan Report ---
CT ABDOMEN AND PELVIS WITHOUT CONTRAST INDICATION: abd pain and nausea. TECHNIQUE: Axial CT images were obtained through the abdomen and pelvis without IV contrast. All CT scans at [facility] location are performed using CT dose reduction for ALARA by means of automated exposure control. COMPARISON: CT abdomen and pelvis 01/09/2019 FINDINGS: LOWER CHEST: Stable moderate cardiomegaly. Bibasilar linear atelectasis has worsened. LIVER: No significant abnormality. GALLBLADDER: Collapsed and appears normal. BILE DUCTS: No significant abnormality. PANCREAS: Diffuse fatty atrophy of pancreas, unchanged. SPLEEN: No significant abnormality. ADRENALS: No significant abnormality. RIGHT KIDNEY and URETER: No significant abnormality. LEFT KIDNEY and URETER: No significant abnormality. STOMACH and SMALL BOWEL: No significant abnormality. COLON: Mild sigmoid diverticulosis without diverticulitis, unchanged. APPENDIX: Remains normal PERITONEUM: No free fluid. No free air. No fluid collection. LYMPH NODES: No significant adenopathy. AORTA and ARTERIES: No significant abnormality. IVC and VEINS: No significant abnormality. URINARY BLADDER: No significant abnormality. REPRODUCTIVE ORGANS: 4 cm right ovarian cyst, unchanged. Uterus and left ovary appear unremarkable on this noncontrast study. ADDITIONAL FINDINGS: None. SKELETAL SYSTEM: No significant abnormality. IMPRESSION: 1. Mild sigmoid diverticulosis without diverticulitis, unchanged. 2. Stable 4 cm right ovarian cyst. No free fluid. 3. Cardiomegaly and marked fatty pancreatic atrophy, unchanged. Signer Name: Shaan Becker MD Signed: 01/15/2019 7:39 PM Workstation Name: [id number]
[2019-01-15] MEDS: DESYREL PO SCH (22:37)
[2019-01-16 06:39] LABS: INR 1.39 (0.87-1.13)
[2019-01-16] MEDS: APRESOLINE IV PRN (07:05)
[2019-01-16] MEDS: HEPARIN/ 0.45% NACL-25,000 UNIT/500 ML 25,000 UNIT/500 ML BAG IV SCH (07:51)
[2019-01-16] MEDS: NORVASC PO SCH (09:52)
[2019-01-16] MEDS: COZAAR PO SCH (09:52)
[2019-01-16] MEDS: LOPRESSOR PO SCH ×2 (09:52→22:56)
[2019-01-16] MEDS: celeXA PO SCH (09:52)
[2019-01-16] MEDS: MORPHINE IV PRN ×3 (09:53→23:07)
[2019-01-16] MEDS: DUONEB *Not for PRN Use IH SCH ×3 (10:27→19:35)
--- NOTE | 2019-01-16 16:47 | Progress Note ---
Assessment and Plan Assessment and plan: 38-year-old female that presents emergency room with complaints of shortness of breath and dyspnea on exertion as well as an asthma attack. Patient states she has been taking her asthma medications nothing is helping. Patient states she took nebs at home with no relief. Patient was given nebulizer treatment en route by EMS with no relief. Patient denies chest pain. . Patient denies syncope. Patient denies headache. Patient denies blurry vision. Patient denies lightheadedness. Patient states she is having lower extremity edema. No cough. Wheezing present. No recent travel. Shortness of breath for 2 days CTAP IMPRESSION: 1. Mild sigmoid diverticulosis without diverticulitis, unchanged. 2. Stable 4 cm right ovarian cyst. No free fluid. 3. Cardiomegaly and marked fatty pancreatic atrophy, unchanged. Gastroenteritis: Nausea with vomiting ct abd and pelvis- showed Diverticulosis zofran Acute Pulmonary embolism On chronic. She had pulmonary embolism in Mar last year took Eliquis for only 1 month because of cost. Now on heparin drip Pulm consulted, following Started on Coumadin dc home when INR >2 Hypertension. Monitor BP Morbid Obesity I counseled her on diet and exercise for 15 mins Advised that she needs outpatient sleep study, she verbalized understanding Ovarian Cyst Counselling about this provided to the patient Recommended to follow up outpatient with OFFICE BOOKKEEPER on discharge Cardiomegaly ?PH Recommend outpatient Cardiology eval Encouraged to ambulate Full code status To dc home on Coumadin History Interval history: Patient seen and examined, resting comfortable, No further nausea or vomiting Hospitalist Physical - Physical exam Narrative exam: Gen: Not in acute distress, lying in bed, morbidly obese HEENT: Normocephalic, atraumatic Neck: supple, no JVD Heart: S1 and S2 reg, no murmurs, rubs or gallop Lungs: Clear to auscultation, no crackles or wheeze Abd: soft, non tender, non distended, normal BS Ext: No edema, no clubbing, no cyanosis Neuro:awake,alert, Oriented X 3. No focal signs - Constitutional Vitals: Temp Pulse Resp BP Pulse Ox 99.3 F 92 H 18 128/75 96 01/16/19 12:33 01/16/19 14:00 01/16/19 14:00 01/16/19 12:33 01/16/19 12:33 General appearance: Present: obese Results - Labs CBC & Chem 7: 01/15/19 14:26 01/15/19 14:26 Labs: Laboratory Last Values WBC 7.6 K/mm3 (4.5-11.0) 01/15/19 14:26 RBC 3.83 M/mm3 (3.65-5.03) 01/15/19 14:26 Hgb 10.7 gm/dl (10.1-14.3) 01/15/19 14:26 Hct 32.1 % (30.3-42.9) 01/15/19 14:26 MCV 84 fl (79-97) 01/15/19 14:26 MCH 28 pg (28-32) 01/15/19 14:26 MCHC 33 % (30-34) 01/15/19 14:26 RDW 16.8 % (13.2-15.2) H 01/15/19 14:26 Plt Count 214 K/mm3 (140-440) 01/15/19 14:26 Lymph % (Auto) 30.2 % (13.4-35.0) 01/11/19 11:55 [place] % (Auto) 8.0 % (0.0-7.3) H 01/11/19 11:55 Eos % (Auto) 1.3 % (0.0-4.3) 01/11/19 11:55 Baso % (Auto) 1.5 % (0.0-1.8) 01/11/19 11:55 Lymph # 2.1 K/mm3 (1.2-5.4) 01/11/19 11:55 [place] # 0.6 K/mm3 (0.0-0.8) 01/11/19 11:55 Eos # 0.1 K/mm3 (0.0-0.4) 01/11/19 11:55 Baso # 0.1 K/mm3 (0.0-0.1) 01/11/19 11:55 Seg Neutrophils % 59.0 % (40.0-70.0) 01/11/19 11:55 Seg Neutrophils # 4.1 K/mm3 (1.8-7.7) 01/11/19 11:55 PT 16.7 Sec. (12.2-14.9) H 01/16/19 06:00 INR 1.39 (0.87-1.13) H 01/16/19 06:00 APTT 22.9 Sec. (24.2-36.6) L 01/11/19 18:15 Heparin Anti-Xa Level 0.35 U.I./ml (0.3-0.7) 01/15/19 23:05 Sodium 139 mmol/L (137-145) 01/15/19 14:26 Potassium 4.4 mmol/L (3.6-5.0) D 01/15/19 14:26 Chloride 100.5 mmol/L (98-107) 01/15/19 14:26 Carbon Dioxide 30 mmol/L (22-30) 01/15/19 14:26 13 mmol/L 01/15/19 14:26 BUN 15 mg/dL (7-17) 01/15/19 14:26 0.7 mg/dL (0.7-1.2) 01/15/19 14:26 Estimated GFR > 60 ml/min 01/15/19 14:26 21 % 01/15/19 14:26 Glucose 149 mg/dL (65-100) H 01/15/19 14:26 Calcium 8.8 mg/dL (8.4-10.2) 01/15/19 14:26 0.40 mg/dL (0.1-1.2) 01/11/19 13:34 AST 13 units/L (5-40) 01/11/19 13:34 ALT 10 units/L (7-56) 01/11/19 13:34 120 units/L (35-129) 01/11/19 13:34 130 units/L (30-135) 01/11/19 15:14 CK-MB (CK-2) 1.4 ng/mL (0.0-4.0) 01/11/19 15:14 CK-MB (CK-2) Rel Index 1.0 (0-4) 01/11/19 15:14 < 0.010 ng/mL (0.00-0.029) 01/11/19 15:14 NT-Pro-B Natriuret Pep 211.8 pg/mL (0-450) 01/11/19 13:34 7.8 g/dL (6.3-8.2) 01/11/19 13:34 4.3 g/dL (3.9-5) 01/11/19 13:34 1.2 % 01/11/19 13:34 Active Medications - Current Medications Current Medications: Generic Name Dose Route Start Last Admin Trade Name Freq PRN Reason Stop Dose Admin Albuterol/Ipratropium 1 ampul 01/14/19 08:00 01/16/19 14:10 Duoneb *Not For Prn Use* IH 1 ampul TIDRT FROY Administration Amlodipine Besylate 10 mg 01/13/19 10:00 01/16/19 09:52 Norvasc PO 10 mg DAILY FROY Administration Citalopram Hydrobromide 40 mg 01/12/19 10:00 01/16/19 09:52 Celexa PO 40 mg DAILY FROY Administration Hydralazine HCl 10 mg 01/11/19 23:24 01/16/19 07:05 Apresoline IV 10 mg Q4HR PRN Administration Blood Pressure Heparin Sodium/Sodium Chloride 25,000 unit in 500 mls @ 30 mls/hr 01/11/19 18:30 01/16/19 07:51 Heparin/ 0.45% Nacl-25,000 Unit/500 Ml IV 1,550 units/hr TITR FROY 31 mls/hr Administration Protocol 1,500 UNITS/HR Losartan Potassium 100 mg 01/14/19 10:15 01/16/19 09:52 Cozaar PO 100 mg QDAY FROY Administration Metoprolol Tartrate 25 mg 01/13/19 10:00 01/16/19 09:52 Lopressor PO 25 mg BID FROY Administration Mirtazapine 30 mg 01/12/19 00:30 01/15/19 22:38 Remeron PO 30 mg QHS [facility]OY Administration Morphine Sulfate 2 mg 01/12/19 11:26 01/16/19 16:21 Morphine IV 2 mg Q4H PRN Administration Pain, Moderate (4-6) Ondansetron HCl 4 mg 01/15/19 07:55 01/15/19 18:11 Zofran IV 4 mg Q4H PRN Administration Nausea And Vomiting Oxycodone/Acetaminophen 2 tab 01/11/19 23:13 01/15/19 20:45 Percocet 5/325 PO 2 tab Q6H PRN Administration Pain, Moderate (4-6) Trazodone HCl 150 mg 01/12/19 00:30 01/15/19 22:37 Desyrel PO 150 mg QHS [facility] Administration Warfarin Sodium 15 mg 01/16/19 17:00 Coumadin PO DAILY@1700 [facility] Nutrition/Malnutrition Assess - Dietary Evaluation Nutrition/Malnutrition Findings: Nutrition Notes Start: 01/14/19 14: 12 Freq: Status: Active Protocol: Document 01/15/19 11:47 RM (Rec: 01/15/19 11:50 RM [id number]) Nutrition Notes Initial or Follow up Brief Note Subjective/Other Information Consulted for Coumadin/Vitamin K diet education. Pt stated that she has already been educated and has no further questions.
[2019-01-16] MEDS: COUMADIN PO SCH (17:08)
[2019-01-16] MEDS: PERCOCET 5/325 PO PRN (20:21)
[2019-01-16] MEDS: DESYREL PO SCH (22:56)
[2019-01-16] MEDS: REMERON PO SCH (22:56)
[2019-01-16] MEDS: ZOFRAN IV PRN (23:11)
[2019-01-17] MEDS: MORPHINE IV PRN ×3 (04:04→15:33)
[2019-01-17 05:11] LABS: Hematocrit 31.9 % (30.3-42.9); Hemoglobin 10.4 gm/dl (10.1-14.3)
[2019-01-17 05:17] LABS: INR 1.7 (0.87-1.13)
[2019-01-17] MEDS: HEPARIN/ 0.45% NACL-25,000 UNIT/500 ML 25,000 UNIT/500 ML BAG IV SCH ×2 (05:17→19:30)
[2019-01-17] MEDS: ZOFRAN IV PRN (07:48)
[2019-01-17] MEDS: DUONEB *Not for PRN Use IH SCH ×3 (08:39→19:39)
--- NOTE | 2019-01-17 08:46 | Progress Note ---
Assessment and Plan Assessment and plan: 38-year-old female that presents emergency room with complaints of shortness of breath and dyspnea on exertion as well as an asthma attack. Patient states she has been taking her asthma medications nothing is helping. Patient states she took nebs at home with no relief. Patient was given nebulizer treatment en route by EMS with no relief. Patient denies chest pain. . Patient denies syncope. Patient denies headache. Patient denies blurry vision. Patient denies lightheadedness. Patient states she is having lower extremity edema. No cough. Wheezing present. No recent travel. Shortness of breath for 2 days CTAP IMPRESSION: 1. Mild sigmoid diverticulosis without diverticulitis, unchanged. 2. Stable 4 cm right ovarian cyst. No free fluid. 3. Cardiomegaly and marked fatty pancreatic atrophy, unchanged. Gastroenteritis: Nausea with vomiting ct abd and pelvis- showed Diverticulosis zofran prn monitor for any other pathology Acute Pulmonary embolism On chronic. She had pulmonary embolism in Mar last year took Eliquis for only 1 month because of cost. Now on heparin drip Pulm consulted, following Started on Coumadin dc home when INR >2 Hypertension. Monitor BP Morbid Obesity I counseled her on diet and exercise for 15 mins Advised that she needs outpatient sleep study, she verbalized understanding Ovarian Cyst Counselling about this provided to the patient Recommended to follow up outpatient with RADIO ASSEMBLER on discharge Cardiomegaly ?PH Recommend outpatient Cardiology eval Encouraged to ambulate Full code status To dc home on Coumadin History Interval history: Patient seen and examined, resting comfortable, Had an episode of nausea but no vomiting Hospitalist Physical - Physical exam Narrative exam: Gen: Not in acute distress, lying in bed, morbidly obese HEENT: Normocephalic, atraumatic Neck: supple, no JVD Heart: S1 and S2 reg, no murmurs, rubs or gallop Lungs: Clear to auscultation, no crackles or wheeze Abd: soft, non tender, non distended, normal BS Ext: No edema, no clubbing, no cyanosis Neuro:awake,alert, Oriented X 3. No focal signs - Constitutional Vitals: Temp Pulse Resp BP Pulse Ox 99.0 F 88 16 116/64 94 01/17/19 06:25 01/17/19 08:39 01/17/19 08:39 01/17/19 06:25 01/17/19 08:42 General appearance: Present: obese Results - Labs CBC & Chem 7: 01/17/19 04:14 01/15/19 14:26 Labs: Laboratory Last Values WBC 7.6 K/mm3 (4.5-11.0) 01/15/19 14:26 RBC 3.83 M/mm3 (3.65-5.03) 01/15/19 14:26 Hgb 10.4 gm/dl (10.1-14.3) 01/17/19 04:14 Hct 31.9 % (30.3-42.9) 01/17/19 04:14 MCV 84 fl (79-97) 01/15/19 14:26 MCH 28 pg (28-32) 01/15/19 14:26 MCHC 33 % (30-34) 01/15/19 14:26 RDW 16.8 % (13.2-15.2) H 01/15/19 14:26 Plt Count 186 K/mm3 (140-440) 01/17/19 04:14 Lymph % (Auto) 30.2 % (13.4-35.0) 01/11/19 11:55 [place] % (Auto) 8.0 % (0.0-7.3) H 01/11/19 11:55 Eos % (Auto) 1.3 % (0.0-4.3) 01/11/19 11:55 Baso % (Auto) 1.5 % (0.0-1.8) 01/11/19 11:55 Lymph # 2.1 K/mm3 (1.2-5.4) 01/11/19 11:55 [place] # 0.6 K/mm3 (0.0-0.8) 01/11/19 11:55 Eos # 0.1 K/mm3 (0.0-0.4) 01/11/19 11:55 Baso # 0.1 K/mm3 (0.0-0.1) 01/11/19 11:55 Seg Neutrophils % 59.0 % (40.0-70.0) 01/11/19 11:55 Seg Neutrophils # 4.1 K/mm3 (1.8-7.7) 01/11/19 11:55 PT 19.6 Sec. (12.2-14.9) H 01/17/19 04:14 INR 1.70 (0.87-1.13) H 01/17/19 04:14 APTT 22.9 Sec. (24.2-36.6) L 01/11/19 18:15 Heparin Anti-Xa Level < 0.10 U.I./ml (0.3-0.7) L 01/16/19 22:24 Sodium 139 mmol/L (137-145) 01/15/19 14:26 Potassium 4.4 mmol/L (3.6-5.0) D 01/15/19 14:26 Chloride 100.5 mmol/L (98-107) 01/15/19 14:26 Carbon Dioxide 30 mmol/L (22-30) 01/15/19 14:26 13 mmol/L 01/15/19 14:26 BUN 15 mg/dL (7-17) 01/15/19 14:26 0.7 mg/dL (0.7-1.2) 01/15/19 14:26 Estimated GFR > 60 ml/min 01/15/19 14:26 21 % 01/15/19 14:26 Glucose 149 mg/dL (65-100) H 01/15/19 14:26 Calcium 8.8 mg/dL (8.4-10.2) 01/15/19 14:26 0.40 mg/dL (0.1-1.2) 01/11/19 13:34 AST 13 units/L (5-40) 01/11/19 13:34 ALT 10 units/L (7-56) 01/11/19 13:34 120 units/L (35-129) 01/11/19 13:34 130 units/L (30-135) 01/11/19 15:14 CK-MB (CK-2) 1.4 ng/mL (0.0-4.0) 01/11/19 15:14 CK-MB (CK-2) Rel Index 1.0 (0-4) 01/11/19 15:14 < 0.010 ng/mL (0.00-0.029) 01/11/19 15:14 NT-Pro-B Natriuret Pep 211.8 pg/mL (0-450) 01/11/19 13:34 7.8 g/dL (6.3-8.2) 01/11/19 13:34 4.3 g/dL (3.9-5) 01/11/19 13:34 1.2 % 01/11/19 13:34 Active Medications - Current Medications Current Medications: Generic Name Dose Route Start Last Admin Trade Name Freq PRN Reason Stop Dose Admin Albuterol/Ipratropium 1 ampul 01/14/19 08:00 01/17/19 08:39 Duoneb *Not For Prn Use* IH 1 ampul TIDRT FROY Administration Amlodipine Besylate 10 mg 01/13/19 10:00 01/16/19 09:52 Norvasc PO 10 mg DAILY FROY Administration Citalopram Hydrobromide 40 mg 01/12/19 10:00 01/16/19 09:52 Celexa PO 40 mg DAILY FROY Administration Hydralazine HCl 10 mg 01/11/19 23:24 01/16/19 07:05 Apresoline IV 10 mg Q4HR PRN Administration Blood Pressure Heparin Sodium/Sodium Chloride 25,000 unit in 500 mls @ 30 mls/hr 01/11/19 18:30 01/17/19 05:17 Heparin/ 0.45% Nacl-25,000 Unit/500 Ml IV 1,850 units/hr TITR FROY 37 mls/hr Administration Protocol 1,500 UNITS/HR Losartan Potassium 100 mg 01/14/19 10:15 01/16/19 09:52 Cozaar PO 100 mg QDAY [facility]OY Administration Metoprolol Tartrate 25 mg 01/13/19 10:00 01/16/19 22:56 Lopressor PO 25 mg BID FROY Administration Mirtazapine 30 mg 01/12/19 00:30 01/16/19 22:56 Remeron PO 30 mg QHS [facility]OY Administration Morphine Sulfate 2 mg 01/12/19 11:26 01/17/19 07:46 Morphine IV 2 mg Q4H PRN Administration Pain, Moderate (4-6) Ondansetron HCl 4 mg 01/15/19 07:55 01/17/19 07:48 Zofran IV 4 mg Q4H PRN Administration Nausea And Vomiting Oxycodone/Acetaminophen 2 tab 01/11/19 23:13 01/16/19 20:21 Percocet 5/325 PO 2 tab Q6H PRN Administration Pain, Moderate (4-6) Trazodone HCl 150 mg 01/12/19 00:30 01/16/19 22:56 Desyrel PO 150 mg QHS [facility]OY Administration Warfarin Sodium 15 mg 01/16/19 17:00 01/16/19 17:08 Coumadin PO 15 mg DAILY@1700 FROY Administration Nutrition/Malnutrition Assess - Dietary Evaluation Nutrition/Malnutrition Findings: Nutrition Notes Start: 01/14/19 14:12 Freq: Status: Active Protocol: Document 01/15/19 11:47 RM (Rec: 01/15/19 11:50 RM [id number]) Nutrition Notes Initial or Follow up Brief Note Subjective/Other Information Consulted for Coumadin/Vitamin K diet education. Pt stated that she has already been educated and has no further questions.
[2019-01-17] MEDS ORDERED: PROVENTIL IH PRN (10:20)
[2019-01-17] MEDS: LOPRESSOR PO SCH ×2 (10:48→21:56)
[2019-01-17] MEDS: celeXA PO SCH (10:48)
[2019-01-17] MEDS: COZAAR PO SCH (10:48)
[2019-01-17] MEDS: NORVASC PO SCH (10:48)
[2019-01-17] MEDS: PERCOCET 5/325 PO PRN ×2 (10:51→20:31)
[2019-01-17] MEDS: COUMADIN PO SCH (17:22)
[2019-01-17] MEDS: BROVANA NEBU IH SCH (19:39)
[2019-01-17] MEDS: PULMICORT IH SCH (19:39)
[2019-01-17] MEDS: DESYREL PO SCH (21:56)
[2019-01-17] MEDS: REMERON PO SCH (21:56)
[2019-01-18] MEDS: PERCOCET 5/325 PO PRN ×4 (02:20→20:51)
[2019-01-18] MEDS: DUONEB *Not for PRN Use IH SCH ×4 (02:22→19:46)
[2019-01-18] MEDS: HEPARIN/ 0.45% NACL-25,000 UNIT/500 ML 25,000 UNIT/500 ML BAG IV SCH ×2 (07:05→20:31)
[2019-01-18 08:12] LABS: INR 1.8 (0.87-1.13)
[2019-01-18] MEDS: PULMICORT IH SCH ×2 (09:09→19:46)
[2019-01-18] MEDS: BROVANA NEBU IH SCH ×2 (09:09→19:46)
[2019-01-18] MEDS: NORVASC PO SCH (11:19)
[2019-01-18] MEDS: celeXA PO SCH (11:21)
[2019-01-18] MEDS: LOPRESSOR PO SCH ×2 (11:21→21:14)
[2019-01-18] MEDS: COZAAR PO SCH (11:21)
[2019-01-18] MEDS ORDERED: IMITREX PO PRN (11:29)
--- NOTE | 2019-01-18 14:45 | Progress Note ---
Assessment and Plan Assessment and plan: 38-year-old female that presents emergency room with complaints of shortness of breath and dyspnea on exertion as well as an asthma attack. Patient states she has been taking her asthma medications nothing is helping. Patient states she took nebs at home with no relief. Patient was given nebulizer treatment en route by EMS with no relief. Patient denies chest pain. . Patient denies syncope. Patient denies headache. Patient denies blurry vision. Patient denies lightheadedness. Patient states she is having lower extremity edema. No cough. Wheezing present. No recent travel. Shortness of breath for 2 days CTAP IMPRESSION: 1. Mild sigmoid diverticulosis without diverticulitis, unchanged. 2. Stable 4 cm right ovarian cyst. No free fluid. 3. Cardiomegaly and marked fatty pancreatic atrophy, unchanged. Gastroenteritis: Nausea with vomiting ct abd and pelvis- showed Diverticulosis Zofran prn monitor for any other pathology Acute Pulmonary embolism On chronic. She had pulmonary embolism in Mar last year took Eliquis for only 1 month because of cost. Now on heparin drip Pulm consulted, following Started on Coumadin Dc home when INR >2 Found patients coumadin on the floor not sure if this is from yesterday or a few days ago. Hypertension. Monitor BP Morbid Obesity I counseled her on diet and exercise for 15 mins Advised that she needs outpatient sleep study, she verbalized understanding Ovarian Cyst Counselling about this provided to the patient Recommended to follow up outpatient with GEOPHYSICAL OBSERVER on discharge Cardiomegaly ?PH Recommend outpatient Cardiology eval Encouraged to ambulate Full code status To dc home on Coumadin History Interval history: Patient seen and examined, resting comfortable, no nausea or vomiting but reports migraine headache 12/03 now resolved Hospitalist Physical - Physical exam Narrative exam: Gen: Not in acute distress, lying in bed, morbidly obese HEENT: Normocephalic, atraumatic Neck: supple, no JVD Heart: S1 and S2 reg, no murmurs, rubs or gallop Lungs: Clear to auscultation, no crackles or wheeze Abd: soft, non tender, non distended, normal BS Ext: No edema, no clubbing, no cyanosis Neuro:awake,alert, Oriented X 3. No focal signs - Constitutional Vitals: Temp Pulse Resp BP Pulse Ox 98.3 F 74 18 112/67 95 01/18/19 11:44 01/18/19 11:44 01/18/19 11:44 01/18/19 11:44 01/18/19 11:44 General appearance: Present: obese Results - Labs CBC & Chem 7: 01/17/19 04:14 01/15/19 14:26 Labs: Laboratory Last Values WBC 7.6 K/mm3 (4.5-11.0) 01/15/19 14:26 RBC 3.83 M/mm3 (3.65-5.03) 01/15/19 14:26 Hgb 10.4 gm/dl (10.1-14.3) 01/17/19 04:14 Hct 31.9 % (30.3-42.9) 01/17/19 04:14 MCV 84 fl (79-97) 01/15/19 14:26 MCH 28 pg (28-32) 01/15/19 14:26 MCHC 33 % (30-34) 01/15/19 14:26 RDW 16.8 % (13.2-15.2) H 01/15/19 14:26 Plt Count 186 K/mm3 (140-440) 01/17/19 04:14 Lymph % (Auto) 30.2 % (13.4-35.0) 01/11/19 11:55 [place] % (Auto) 8.0 % (0.0-7.3) H 01/11/19 11:55 Eos % (Auto) 1.3 % (0.0-4.3) 01/11/19 11:55 Baso % (Auto) 1.5 % (0.0-1.8) 01/11/19 11:55 Lymph # 2.1 K/mm3 (1.2-5.4) 01/11/19 11:55 [place] # 0.6 K/mm3 (0.0-0.8) 01/11/19 11:55 Eos # 0.1 K/mm3 (0.0-0.4) 01/11/19 11:55 Baso # 0.1 K/mm3 (0.0-0.1) 01/11/19 11:55 Seg Neutrophils % 59.0 % (40.0-70.0) 01/11/19 11:55 Seg Neutrophils # 4.1 K/mm3 (1.8-7.7) 01/11/19 11:55 PT 20.5 Sec. (12.2-14.9) H 01/18/19 07:48 INR 1.80 (0.87-1.13) H 01/18/19 07:48 APTT 22.9 Sec. (24.2-36.6) L 01/11/19 18:15 Heparin Anti-Xa Level 0.49 U.I./ml (0.3-0.7) 01/17/19 22:39 Sodium 139 mmol/L (137-145) 01/15/19 14:26 Potassium 4.4 mmol/L (3.6-5.0) D 01/15/19 14:26 Chloride 100.5 mmol/L (98-107) 01/15/19 14:26 Carbon Dioxide 30 mmol/L (22-30) 01/15/19 14:26 13 mmol/L 01/15/19 14:26 BUN 15 mg/dL (7-17) 01/15/19 14:26 0.7 mg/dL (0.7-1.2) 01/15/19 14:26 Estimated GFR > 60 ml/min 01/15/19 14:26 21 % 01/15/19 14:26 Glucose 149 mg/dL (65-100) H 01/15/19 14:26 Calcium 8.8 mg/dL (8.4-10.2) 01/15/19 14:26 0.40 mg/dL (0.1-1.2) 01/11/19 13:34 AST 13 units/L (5-40) 01/11/19 13:34 ALT 10 units/L (7-56) 01/11/19 13:34 120 units/L (35-129) 01/11/19 13:34 130 units/L (30-135) 01/11/19 15:14 CK-MB (CK-2) 1.4 ng/mL (0.0-4.0) 01/11/19 15:14 CK-MB (CK-2) Rel Index 1.0 (0-4) 01/11/19 15:14 < 0.010 ng/mL (0.00-0.029) 01/11/19 15:14 NT-Pro-B Natriuret Pep 211.8 pg/mL (0-450) 01/11/19 13:34 7.8 g/dL (6.3-8.2) 01/11/19 13:34 4.3 g/dL (3.9-5) 01/11/19 13:34 1.2 % 01/11/19 13:34 Active Medications - Current Medications Current Medications: Generic Name Dose Route Start Last Admin Trade Name Freq PRN Reason Stop Dose Admin Albuterol 2.5 mg 01/17/19 10:20 Proventil IH Q4HRT PRN Shortness Of Breath Albuterol/Ipratropium 1 ampul 01/17/19 14:00 01/18/19 09:09 Duoneb *Not For Prn Use* IH 1 ampul Q6HRT FROY Administration Amlodipine Besylate 10 mg 01/13/19 10:00 01/18/19 11:19 Norvasc PO 10 mg DAILY FROY Administration Arformoterol Tartrate 15 mcg 01/17/19 20:00 01/18/19 09:09 Brovana Nebu IH 15 mcg Q12HRT FROY Administration Budesonide 0.5 mg 01/17/19 20:00 01/18/19 09:09 Pulmicort IH 0.5 mg Q12HRT FROY Administration Citalopram Hydrobromide 40 mg 01/12/19 10:00 01/18/19 11:21 Celexa PO 40 mg DAILY [facility]OY Administration Hydralazine HCl 10 mg 01/11/19 23:24 01/16/19 07:05 Apresoline IV 10 mg Q4HR PRN Administration Blood Pressure Heparin Sodium/Sodium Chloride 25,000 unit in 500 mls @ 30 mls/hr 01/11/19 18:30 01/18/19 07:05 Heparin/ 0.45% Nacl-25,000 Unit/500 Ml IV 2,150 units/hr TITR FROY 43 mls/hr Administration Protocol 1,500 UNITS/HR Losartan Potassium 100 mg 01/14/19 10:15 01/18/19 11:21 Cozaar PO 100 mg QDAY [facility]OY Administration Metoprolol Tartrate 25 mg 01/13/19 10:00 01/18/19 11:21 Lopressor PO 25 mg BID FROY Administration Mirtazapine 30 mg 01/12/19 00:30 01/17/19 21:56 Remeron PO 30 mg QHS [facility]OY Administration Ondansetron HCl 4 mg 01/15/19 07:55 01/17/19 07:48 Zofran IV 4 mg Q4H PRN Administration Nausea And Vomiting Oxycodone/Acetaminophen 2 tab 01/11/19 23:13 01/18/19 08:22 Percocet 5/325 PO 2 tab Q6H PRN Administration Pain, Moderate (4-6) Sumatriptan Succinate 50 mg 01/18/19 11:29 01/18/19 13:33 Imitrex PO 50 mg Q2H PRN Administration Migraine Headache Trazodone HCl 150 mg 01/12/19 00:30 01/17/19 21:56 Desyrel PO 150 mg QHS [facility]OY Administration Warfarin Sodium 15 mg 01/16/19 17:00 01/17/19 17:22 Coumadin PO 15 mg DAILY@1700 [facility]OY Administration Warfarin Sodium 2.5 mg 01/18/19 17:00 Coumadin PO DAILY@1700 [facility] Nutrition/Malnutrition Assess - Dietary Evaluation Nutrition/Malnutrition Findings: Nutrition Notes Start: 01/14/19 14:12 Freq: Status: Active Protocol: Document 01/15/19 11:47 RM (Rec: 01/15/19 11:50 RM [id number]) Nutrition Notes Initial or Follow up Brief Note Subjective/Other Information Consulted for Coumadin/Vitamin K diet education. Pt stated that she has already been educated and has no further questions.
[2019-01-18] MEDS: COUMADIN PO SCH ×2 (17:11)
[2019-01-18] MEDS: DESYREL PO SCH (21:14)
[2019-01-18] MEDS: REMERON PO SCH (21:15)
[2019-01-19] MEDS: DUONEB *Not for PRN Use IH SCH ×4 (02:18→20:53)
[2019-01-19] MEDS: PERCOCET 5/325 PO PRN ×4 (05:45→23:06)
[2019-01-19 06:05] LABS: Hematocrit 31.2 % (30.3-42.9); Hemoglobin 10.1 gm/dl (10.1-14.3)
[2019-01-19 06:17] LABS: INR 1.96 (0.87-1.13)
[2019-01-19] MEDS: BROVANA NEBU IH SCH ×2 (08:18→20:50)
[2019-01-19] MEDS: PULMICORT IH SCH ×2 (08:18→20:50)
[2019-01-19] MEDS: COZAAR PO SCH (09:47)
[2019-01-19] MEDS: LOPRESSOR PO SCH ×2 (09:48→23:11)
[2019-01-19] MEDS: celeXA PO SCH (09:49)
[2019-01-19] MEDS: NORVASC PO SCH (09:49)
--- NOTE | 2019-01-19 10:04 | Progress Note ---
Assessment and Plan Assessment and plan: 38-year-old female that presents emergency room with complaints of shortness of breath and dyspnea on exertion as well as an asthma attack. Patient states she has been taking her asthma medications nothing is helping. Patient states she took nebs at home with no relief. Patient was given nebulizer treatment en route by EMS with no relief. Patient denies chest pain. . Patient denies syncope. Patient denies headache. Patient denies blurry vision. Patient denies lightheadedness. Patient states she is having lower extremity edema. No cough. Wheezing present. No recent travel. Shortness of breath for 2 days CTAP IMPRESSION: 1. Mild sigmoid diverticulosis without diverticulitis, unchanged. 2. Stable 4 cm right ovarian cyst. No free fluid. 3. Cardiomegaly and marked fatty pancreatic atrophy, unchanged. Gastroenteritis: Nausea with vomiting ct abd and pelvis- showed Diverticulosis Zofran prn monitor for any other pathology Acute Pulmonary embolism She had pulmonary embolism in Mar last year took Eliquis for only 1 month because of cost. Now on heparin drip Pulm consulted, following Started on Coumadin Dc home when INR >2 Found patients coumadin on the floor not sure if this is from yesterday or a few days ago. Hypoxic Respiratory failure. uninsured, this may impede discharge CM consult OBTAIN ECHO TO Eval for pulmonary HTN and effect of the pulmonary embolisim Hypertension. Monitor BP add hydralazine Morbid Obesity I counseled her on diet and exercise for 15 mins Advised that she needs outpatient sleep study, she verbalized understanding Ovarian Cyst Counselling about this provided to the patient Recommended to follow up outpatient with [employer] on discharge Cardiomegaly ?PH Recommend outpatient Cardiology eval Encouraged to ambulate Full code status To dc home on Coumadin History Interval history: Patient seen and examined, resting comfortable, no nausea or vomiting headache improving. Patient noted to be hypoxic off oxygen Hospitalist Physical - Physical exam Narrative exam: Gen: Not in acute distress, lying in bed, morbidly obese HEENT: Normocephalic, atraumatic Neck: supple, no JVD Heart: S1 and S2 reg, no murmurs, rubs or gallop Lungs: Clear to auscultation, no crackles or wheeze Abd: soft, non tender, non distended, normal BS Ext: No edema, no clubbing, no cyanosis Neuro:awake,alert, Oriented X 3. No focal signs - Constitutional Vitals: Temp Pulse Resp BP Pulse Ox 98.1 F 69 19 150/100 94 01/19/19 05:25 01/19/19 09:49 01/19/19 06:45 01/19/19 09:49 01/19/19 05:25 General appearance: Present: obese Results - Labs CBC & Chem 7: 01/19/19 05:48 01/15/19 14:26 Labs: Laboratory Last Values WBC 7.6 K/mm3 (4.5-11.0) 01/15/19 14:26 RBC 3.83 M/mm3 (3.65-5.03) 01/15/19 14:26 Hgb 10.1 gm/dl (10.1-14.3) 01/19/19 05:48 Hct 31.2 % (30.3-42.9) 01/19/19 05:48 MCV 84 fl (79-97) 01/15/19 14:26 MCH 28 pg (28-32) 01/15/19 14:26 MCHC 33 % (30-34) 01/15/19 14:26 RDW 16.8 % (13.2-15.2) H 01/15/19 14:26 Plt Count 180 K/mm3 (140-440) 01/19/19 05:48 Lymph % (Auto) 30.2 % (13.4-35.0) 01/11/19 11:55 [place] % (Auto) 8.0 % (0.0-7.3) H 01/11/19 11:55 Eos % (Auto) 1.3 % (0.0-4.3) 01/11/19 11:55 Baso % (Auto) 1.5 % (0.0-1.8) 01/11/19 11:55 Lymph # 2.1 K/mm3 (1.2-5.4) 01/11/19 11:55 [place] # 0.6 K/mm3 (0.0-0.8) 01/11/19 11:55 Eos # 0.1 K/mm3 (0.0-0.4) 01/11/19 11:55 Baso # 0.1 K/mm3 (0.0-0.1) 01/11/19 11:55 Seg Neutrophils % 59.0 % (40.0-70.0) 01/11/19 11:55 Seg Neutrophils # 4.1 K/mm3 (1.8-7.7) 01/11/19 11:55 PT 21.9 Sec. (12.2-14.9) H 01/19/19 05:47 INR 1.96 (0.87-1.13) H 01/19/19 05:47 APTT 22.9 Sec. (24.2-36.6) L 01/11/19 18:15 Heparin Anti-Xa Level 0.74 U.I./ml (0.3-0.7) H 01/19/19 08:23 Sodium 139 mmol/L (137-145) 01/15/19 14:26 Potassium 4.4 mmol/L (3.6-5.0) D 01/15/19 14:26 Chloride 100.5 mmol/L (98-107) 01/15/19 14:26 Carbon Dioxide 30 mmol/L (22-30) 01/15/19 14:26 13 mmol/L 01/15/19 14:26 BUN 15 mg/dL (7-17) 01/15/19 14:26 0.7 mg/dL (0.7-1.2) 01/15/19 14:26 Estimated GFR > 60 ml/min 01/15/19 14:26 21 % 01/15/19 14:26 Glucose 149 mg/dL (65-100) H 01/15/19 14:26 Calcium 8.8 mg/dL (8.4-10.2) 01/15/19 14:26 0.40 mg/dL (0.1-1.2) 01/11/19 13:34 AST 13 units/L (5-40) 01/11/19 13:34 ALT 10 units/L (7-56) 01/11/19 13:34 120 units/L (35-129) 01/11/19 13:34 130 units/L (30-135) 01/11/19 15:14 CK-MB (CK-2) 1.4 ng/mL (0.0-4.0) 01/11/19 15:14 CK-MB (CK-2) Rel Index 1.0 (0-4) 01/11/19 15:14 < 0.010 ng/mL (0.00-0.029) 01/11/19 15:14 NT-Pro-B Natriuret Pep 211.8 pg/mL (0-450) 01/11/19 13:34 7.8 g/dL (6.3-8.2) 01/11/19 13:34 4.3 g/dL (3.9-5) 01/11/19 13:34 1.2 % 01/11/19 13:34 Active Medications - Current Medications Current Medications: Generic Name Dose Route Start Last Admin Trade Name Freq PRN Reason Stop Dose Admin Albuterol 2.5 mg 01/17/19 10:20 Proventil IH Q4HRT PRN Shortness Of Breath Albuterol/Ipratropium 1 ampul 01/17/19 14:00 01/19/19 08:19 Duoneb *Not For Prn Use* IH Not Given Q6HRT FROY Amlodipine Besylate 10 mg 01/13/19 10:00 01/19/19 09:49 Norvasc PO 10 mg DAILY FROY Administration Arformoterol Tartrate 15 mcg 01/17/19 20:00 01/19/19 08:18 Brovana Nebu IH 15 mcg Q12HRT FROY Administration Budesonide 0.5 mg 01/17/19 20:00 01/19/19 08:18 Pulmicort IH 0.5 mg Q12HRT FROY Administration Citalopram Hydrobromide 40 mg 01/12/19 10:00 01/19/19 09:49 Celexa PO 40 mg DAILY FROY Administration Hydralazine HCl 10 mg 01/11/19 23:24 01/16/19 07:05 Apresoline IV 10 mg Q4HR PRN Administration Blood Pressure Heparin Sodium/Sodium Chloride 25,000 unit in 500 mls @ 30 mls/hr 01/11/19 18:30 01/19/19 09:39 Heparin/ 0.45% Nacl-25,000 Unit/500 Ml IV 1,750 units/hr TITR FROY 35 mls/hr Titration Protocol 1,500 UNITS/HR Losartan Potassium 100 mg 01/14/19 10:15 01/19/19 09:47 Cozaar PO 100 mg QDAY FROY Administration Metoprolol Tartrate 25 mg 01/13/19 10:00 01/19/19 09:48 Lopressor PO 25 mg BID FROY Administration Mirtazapine 30 mg 01/12/19 00:30 01/18/19 21:15 Remeron PO 30 mg QHS FROY Administration Ondansetron HCl 4 mg 01/15/19 07:55 01/17/19 07:48 Zofran IV 4 mg Q4H PRN Administration Nausea And Vomiting Oxycodone/Acetaminophen 2 tab 01/11/19 23:13 01/19/19 05:45 Percocet 5/325 PO 2 tab Q6H PRN Administration Pain, Moderate (4-6) Sumatriptan Succinate 50 mg 01/18/19 11:29 01/18/19 13:33 Imitrex PO 50 mg Q2H PRN Administration Migraine Headache Trazodone HCl 150 mg 01/12/19 00:30 01/18/19 21:14 Desyrel PO 150 mg QHS FROY Administration Warfarin Sodium 15 mg 01/16/19 17:00 01/18/19 17:11 Coumadin PO 15 mg DAILY@1700 FROY Administration Warfarin Sodium 2.5 mg 01/18/19 17:00 01/18/19 17:11 Coumadin PO 2.5 mg DAILY@1700 FROY Administration Nutrition/Malnutrition Assess - Dietary Evaluation Nutrition/Malnutrition Findings: Nutrition Notes Start: 01/14/19 14:12 Freq: Status: Active Protocol: Document 01/18/19 17:46 RM (Rec: 01/18/19 17:46 RM [id number]) Nutrition Notes Need for Assessment generated from: LOS Initial or Follow up Brief Note Height 4 ft 11 in Weight 141.2 kg [place] Body Weight (kg) 43.18 BMI 62.8 Subjective/Other Information Screened for LOS. Recorded PO intake 100% X 3 meals. Nutrition Intervention Revisit per MD consult or patient Sign Off request:
[2019-01-19] MEDS: HEPARIN/ 0.45% NACL-25,000 UNIT/500 ML 25,000 UNIT/500 ML BAG IV SCH (11:32)
[2019-01-19] MEDS: APRESOLINE PO SCH ×2 (13:30→23:17)
[2019-01-19] MEDS: COUMADIN PO SCH ×2 (17:07→17:08)
[2019-01-19] MEDS: DESYREL PO SCH (23:08)
[2019-01-19] MEDS: REMERON PO SCH (23:10)
[2019-01-20] MEDS: DUONEB *Not for PRN Use IH SCH ×4 (02:30→20:34)
[2019-01-20] MEDS: HEPARIN/ 0.45% NACL-25,000 UNIT/500 ML 25,000 UNIT/500 ML BAG IV SCH (02:42)
[2019-01-20] MEDS: PERCOCET 5/325 PO PRN ×4 (05:13→23:46)
[2019-01-20] MEDS: APRESOLINE PO SCH ×3 (05:14→21:48)
[2019-01-20 06:53] LABS: INR 2.66 (0.87-1.13)
[2019-01-20] MEDS: BROVANA NEBU IH SCH ×2 (07:19→20:30)
[2019-01-20] MEDS: PULMICORT IH SCH ×2 (07:19→20:30)
[2019-01-20] MEDS: celeXA PO SCH (11:13)
[2019-01-20] MEDS: LOPRESSOR PO SCH ×2 (11:14→21:48)
[2019-01-20] MEDS: COZAAR PO SCH (11:14)
[2019-01-20] MEDS: NORVASC PO SCH (11:15)
--- NOTE | 2019-01-20 13:50 | Progress Note ---
Assessment and Plan Assessment and plan: 38-year-old female that presents emergency room with complaints of shortness of breath and dyspnea on exertion as well as an asthma attack. Patient states she has been taking her asthma medications nothing is helping. Patient states she took nebs at home with no relief. Patient was given nebulizer treatment en route by EMS with no relief. Patient denies chest pain. . Patient denies syncope. Patient denies headache. Patient denies blurry vision. Patient denies lightheadedness. Patient states she is having lower extremity edema. No cough. Wheezing present. No recent travel. Shortness of breath for 2 days CTAP IMPRESSION: 1. Mild sigmoid diverticulosis without diverticulitis, unchanged. 2. Stable 4 cm right ovarian cyst. No free fluid. 3. Cardiomegaly and marked fatty pancreatic atrophy, unchanged. Gastroenteritis: Nausea with vomiting ct abd and pelvis- showed Diverticulosis Zofran prn monitor for any other pathology Acute Pulmonary embolism She had pulmonary embolism in Mar last year took Eliquis for only 1 month because of cost. Now on heparin drip Pulm consulted, following Started on Coumadin INR now 2.6 but patient with Hypoxia and awaiting Nutritional service Found patients coumadin on the floor not sure if this is from yesterday or a few days ago. Hypoxic Respiratory failure. uninsured, this may impede discharge CM consult Await ECHO report TO Eval for pulmonary HTN and effect of the pulmonary embolisim Hypertension. Monitor BP add hydralazine Morbid Obesity I counseled her on diet and exercise for 15 mins Advised that she needs outpatient sleep study, she verbalized understanding Ovarian Cyst Counselling about this provided to the patient Recommended to follow up outpatient with [employer] on discharge Cardiomegaly ?PH Recommend outpatient Cardiology eval Encouraged to ambulate Full code status To mt home on Coumadin History Interval history: Patient seen and examined, resting comfortable, no nausea or vomiting headache improving. Patient noted to be hypoxic off oxygen Hospitalist Physical - Physical exam Narrative exam: Gen: Not in acute distress, lying in bed, morbidly obese HEENT: Normocephalic, atraumatic Neck: supple, no JVD Heart: S1 and S2 reg, no murmurs, rubs or gallop Lungs: Clear to auscultation, no crackles or wheeze Abd: soft, non tender, non distended, normal BS Ext: No edema, no clubbing, no cyanosis Neuro:awake,alert, Oriented X 3. No focal signs - Constitutional Vitals: Temp Pulse Resp BP Pulse Ox 98.2 F 72 24 141/95 93 01/20/19 11:52 01/20/19 11:52 01/20/19 11:52 01/20/19 11:52 01/20/19 11:52 General appearance: Present: obese Results - Labs CBC & Chem 7: 01/19/19 05:48 01/15/19 14:26 Labs: Laboratory Last Values WBC 7.6 K/mm3 (4.5-11.0) 01/15/19 14:26 RBC 3.83 M/mm3 (3.65-5.03) 01/15/19 14:26 Hgb 10.1 gm/dl (10.1-14.3) 01/19/19 05:48 Hct 31.2 % (30.3-42.9) 01/19/19 05:48 MCV 84 fl (79-97) 01/15/19 14:26 MCH 28 pg (28-32) 01/15/19 14:26 MCHC 33 % (30-34) 01/15/19 14:26 RDW 16.8 % (13.2-15.2) H 01/15/19 14:26 Plt Count 180 K/mm3 (140-440) 01/19/19 05:48 Lymph % (Auto) 30.2 % (13.4-35.0) 01/11/19 11:55 [place] % (Auto) 8.0 % (0.0-7.3) H 01/11/19 11:55 Eos % (Auto) 1.3 % (0.0-4.3) 01/11/19 11:55 Baso % (Auto) 1.5 % (0.0-1.8) 01/11/19 11:55 Lymph # 2.1 K/mm3 (1.2-5.4) 01/11/19 11:55 [place] # 0.6 K/mm3 (0.0-0.8) 01/11/19 11:55 Eos # 0.1 K/mm3 (0.0-0.4) 01/11/19 11:55 Baso # 0.1 K/mm3 (0.0-0.1) 01/11/19 11:55 Seg Neutrophils % 59.0 % (40.0-70.0) 01/11/19 11:55 Seg Neutrophils # 4.1 K/mm3 (1.8-7.7) 01/11/19 11:55 PT 27.9 Sec. (12.2-14.9) H 01/20/19 06:04 INR 2.66 (0.87-1.13) H 01/20/19 06:04 APTT 22.9 Sec. (24.2-36.6) L 01/11/19 18:15 Heparin Anti-Xa Level 0.63 U.I./ml (0.3-0.7) 01/19/19 16:31 Sodium 139 mmol/L (137-145) 01/15/19 14:26 Potassium 4.4 mmol/L (3.6-5.0) D 01/15/19 14:26 Chloride 100.5 mmol/L (98-107) 01/15/19 14:26 Carbon Dioxide 30 mmol/L (22-30) 01/15/19 14:26 13 mmol/L 01/15/19 14:26 BUN 15 mg/dL (7-17) 01/15/19 14:26 0.7 mg/dL (0.7-1.2) 01/15/19 14:26 Estimated GFR > 60 ml/min 01/15/19 14:26 21 % 01/15/19 14:26 Glucose 149 mg/dL (65-100) H 01/15/19 14:26 Calcium 8.8 mg/dL (8.4-10.2) 01/15/19 14:26 0.40 mg/dL (0.1-1.2) 01/11/19 13:34 AST 13 units/L (5-40) 01/11/19 13:34 ALT 10 units/L (7-56) 01/11/19 13:34 120 units/L (35-129) 01/11/19 13:34 130 units/L (30-135) 01/11/19 15:14 CK-MB (CK-2) 1.4 ng/mL (0.0-4.0) 01/11/19 15:14 CK-MB (CK-2) Rel Index 1.0 (0-4) 01/11/19 15:14 < 0.010 ng/mL (0.00-0.029) 01/11/19 15:14 NT-Pro-B Natriuret Pep 211.8 pg/mL (0-450) 01/11/19 13:34 7.8 g/dL (6.3-8.2) 01/11/19 13:34 4.3 g/dL (3.9-5) 01/11/19 13:34 1.2 % 01/11/19 13:34 Active Medications - Current Medications Current Medications: Generic Name Dose Route Start Last Admin Trade Name Freq PRN Reason Stop Dose Admin Albuterol 2.5 mg 01/17/19 10:20 Proventil IH Q4HRT PRN Shortness Of Breath Albuterol/Ipratropium 1 ampul 01/17/19 14:00 01/20/19 13:17 Duoneb *Not For Prn Use* IH 1 ampul Q6HRT FROY Administration Amlodipine Besylate 10 mg 01/13/19 10:00 01/20/19 11:15 Norvasc PO 10 mg DAILY FROY Administration Arformoterol Tartrate 15 mcg 01/17/19 20:00 01/20/19 07:19 Brovana Nebu IH 15 mcg Q12HRT FROY Administration Budesonide 0.5 mg 01/17/19 20:00 01/20/19 07:19 Pulmicort IH 0.5 mg Q12HRT FROY Administration Citalopram Hydrobromide 40 mg 01/12/19 10:00 01/20/19 11:13 Celexa PO 40 mg DAILY FROY Administration Hydralazine HCl 10 mg 01/11/19 23:24 01/16/19 07:05 Apresoline IV 10 mg Q4HR PRN Administration Blood Pressure Hydralazine HCl 50 mg 01/19/19 14:00 01/20/19 05:14 Apresoline PO 50 mg Q8HR FROY Administration Losartan Potassium 100 mg 01/14/19 10:15 01/20/19 11:14 Cozaar PO 100 mg QDAY FROY Administration Metoprolol Tartrate 25 mg 01/13/19 10:00 01/20/19 11:14 Lopressor PO 25 mg BID FROY Administration Mirtazapine 30 mg 01/12/19 00:30 01/19/19 23:10 Remeron PO 30 mg QHS [facility] Administration Ondansetron HCl 4 mg 01/15/19 07:55 01/17/19 07:48 Zofran IV 4 mg Q4H PRN Administration Nausea And Vomiting Oxycodone/Acetaminophen 2 tab 01/11/19 23:13 01/20/19 11:13 Percocet 5/325 PO 2 tab Q6H PRN Administration Pain, Moderate (4-6) Sumatriptan Succinate 50 mg 01/18/19 11:29 01/18/19 13:33 Imitrex PO 50 mg Q2H PRN Administration Migraine Headache Trazodone HCl 150 mg 01/12/19 00:30 01/19/19 23:08 Desyrel PO 150 mg QHS [facility] Administration Warfarin Sodium 7.5 mg 01/20/19 17:00 Coumadin PO DAILY@1700 [facility] Nutrition/Malnutrition Assess - Dietary Evaluation Nutrition/Malnutrition Findings: Nutrition Notes Start: 01/14/19 14:12 Freq: Status: Active Protocol: Document 01/18/19 17:46 RM (Rec: 01/18/19 17:46 RM [id number]) Nutrition Notes Need for Assessment generated from: LOS Initial or Follow up Brief Note Height 4 ft 11 in Weight 141.2 kg [place] Body Weight (kg) 43.18 BMI 62.8 Subjective/Other Information Screened for LOS. Recorded PO intake 100% X 3 meals. Nutrition Intervention Revisit per MD consult or patient Sign Off request:
[2019-01-20] MEDS ORDERED: COUMADIN PO SCH (17:00)
[2019-01-20] MEDS: REMERON PO SCH (21:47)
[2019-01-20] MEDS: DESYREL PO SCH (21:48)
[2019-01-21] MEDS: DUONEB *Not for PRN Use IH SCH ×3 (03:06→13:02)
[2019-01-21] MEDS: PERCOCET 5/325 PO PRN ×2 (05:43→11:23)
[2019-01-21] MEDS: APRESOLINE PO SCH (05:43)
[2019-01-21] MEDS: BROVANA NEBU IH SCH (07:12)
[2019-01-21] MEDS: PULMICORT IH SCH (07:12)
[2019-01-21] MEDS: COZAAR PO SCH (10:19)
[2019-01-21] MEDS: celeXA PO SCH (10:20)
[2019-01-21] MEDS: NORVASC PO SCH (10:20)
[2019-01-21] MEDS: LOPRESSOR PO SCH (10:20)
[2019-01-21 10:52] LABS: INR 2.72 (0.87-1.13)
--- NOTE | 2019-01-21 11:53 | Discharge Summary ---
Providers - Providers Date of Admission: 01/11/19 17:57 Attending physician: WM BUENO MD 01/15/19 08:00 Consult to Dietitian/Nutrition [CONS] Routine Physician Instructions: Reason For Exam: diet education, On Coumadin Reason for Consult: Diet education 01/17/19 11:50 Physical Therapy Evaluation and Treat [CONS] Routine Comment: Reason For Exam: Eval & Treat 01/19/19 10:03 Consult to Case Management [CONS] Routine Services Needed at Discharge: Home O2 Notified:: candice [facility] Condition: St[facility] Hospital course: 38-year-old female that presents emergency room with complaints of shortness of breath and dyspnea on exertion as well as an asthma attack. Patient states she has been taking her asthma medications nothing is helping. Patient states she took nebs at home with no relief. Patient was given nebulizer treatment en route by EMS with no relief. Patient denies chest pain. . Patient denies syncope. Patient denies headache. Patient denies blurry vision. Patient denies lightheadedness. Patient states she is having lower extremity edema. No cough. Wheezing present. No recent travel. Shortness of breath for 2 days CTAP IMPRESSION: 1. Mild sigmoid diverticulosis without diverticulitis, unchanged. 2. Stable 4 cm right ovarian cyst. No free fluid. 3. Cardiomegaly and marked fatty pancreatic atrophy, unchanged. Gastroenteritis: Nausea with vomiting ct abd and pelvis- showed Diverticulosis Zofran prn monitor for any other pathology Acute Pulmonary embolism She had pulmonary embolism in Mar last year took Eliquis for only 1 month because of cost. Now on heparin drip Pulm consulted, following Started on Coumadin INR now 2.6 but patient with Hypoxia and awaiting Nutritional service Found patients coumadin on the floor not sure if this is from yesterday or a few days ago. Hypoxic Respiratory failure. uninsured, this may impede discharge CM consult Await ECHO report TO Eval for pulmonary HTN and effect of the pulmonary embolisim Hypertension. Monitor BP add hydralazine Morbid Obesity I counseled her on diet and exercise for 15 mins Advised that she needs outpatient sleep study, she verbalized understanding Ovarian Cyst Counselling about this provided to the patient Recommended to follow up outpatient with [employer] on discharge Cardiomegaly ?PH Recommend outpatient Cardiology eval Encouraged to ambulate Full code status To dc home on Coumadin Disposition: [id number]/[place]-06 HOME UNDER HOME HL Time spent for discharge: 35 mins Core Measure Documentation - Palliative Care Palliative Care/ Comfort Measures: Not Applicable Exam - Constitutional Vitals: Temp Pulse Resp BP Pulse Ox 98.4 F 84 16 128/65 93 01/21/19 05:21 01/21/19 10:19 01/21/19 08:53 01/21/19 05:21 01/21/19 07:12 Plan Activity: advance as tolerated, fall precautions Diet: regular Special Instructions: record daily weights, record daily BP diary, home oxygen via (nasal cannula @ 2 liters per minute) [facility] [Primary Care Provider] - 3-5 Days NESS CERVANTES MD [Staff Physician] - 7 Days EMILY LUONG MD [Staff Physician] - 7 Days Forms: Warfarin Discharge Instruction Prescriptions: hydrALAZINE [Apresoline TAB] 50 mg PO Q8HR #30 tablet Citalopram Hydrobromide [Celexa] 40 mg PO DAILY #30 tablet Warfarin [Coumadin] 7.5 mg PO DAILY@1700 #30 tablet Lopressor TAB 25 mg PO BID #60 Losartan 100 mg PO DAILY #30 guaiFENesin ER [Mucinex ER] 600 mg PO Q12H #10 tablet.er amLODIPine [Norvasc] 10 mg PO DAILY #30 tablet oxyCODONE /ACETAMINOPHEN [Percocet 5/325 mg] 2 tab PO Q6H PRN #14 tablet PRN Reason: Pain, Moderate (4-6) Prednisone [predniSONE 5 mg (6-Day Pack, 21 Tabs)] 5 mg PO .TAPER #1 tab.ds.pk Remeron 30 mg PO HS #30 traZODone 150 mg PO HS #30
[2019-01-21 12:25] VITALS: BP 131/82
== END 2019-01-21 15:17 | disposition home or self-care (01) | DRG 175 ==
LOC: ED 11:37 → 4A 17:57 → 3A 01-14 15:15
PROVIDERS: ADMIT Internal Medicine; ATTEND Internal Medicine
DX: I26.99 Other pulmonary embolism without acute cor pulmonale (principal); J96.91 Respiratory failure, unspecified with hypoxia; J81.1 Chronic pulmonary edema; Z68.44 Body mass index [BMI] 60.0-69.9, adult; J45.52 Severe persistent asthma with status asthmaticus; E66.01 Morbid (severe) obesity due to excess calories; K57.30 Diverticulosis of large intestine without perforation or abscess without bleeding; I27.82 Chronic pulmonary embolism; K52.9 Noninfective gastroenteritis and colitis, unspecified; N83.291 Other ovarian cyst, right side; G43.909 Migraine, unspecified, not intractable, without status migrainosus; I10 Essential (primary) hypertension; Z82.49 Family history of ischemic heart disease and other diseases of the circulatory system; Z86.718 Personal history of other venous thrombosis and embolism; Z71.3 Dietary counseling and surveillance
CPT/HCPCS: 36415; 71045; 71275; 74176; 80048; 80053; 82550; 82553; 83880; 84484; 85014; 85018; 85025; 85027; 85049; 85520; 85610; 85730; 87116; 93005; 93010; 93306; 94640; 94760; 96365; 96367; 96375; G0378; J0360; J1170; J1644; J1940; J2270; J2405; J2930; J3475; Q9967

== ENCOUNTER 2019-03-20 15:18 | Emergency (ER) | payer SELFPAY ==
[2019-03-20 16:17] LABS: Basophils # (Auto) 0.1 K/mm3 (0.0-0.1); Basophils % (Auto) 0.7 % (0.0-1.8); Eosinophils # (Auto) 0.1 K/mm3 (0.0-0.4); Hematocrit 32.1 % (30.3-42.9); Hemoglobin 10.7 gm/dl (10.1-14.3); Lymphocytes # (Auto) 1.1 K/mm3 (1.2-5.4); Lymphocytes % (Auto) 14.6 % (13.4-35.0); Mean Corpuscular HGB Conc 33 % (30-34); Mean Corpuscular Volume 82 fl (79-97); Monocytes # (Auto) 0.7 K/mm3 (0.0-0.8); Monocytes % (Auto) 8.5 % (0.0-7.3); Platelet Count 253 K/mm3 (140-440); Red Blood Count 3.91 M/mm3 (3.65-5.03); Red Cell Distribution Width 15.4 % (13.2-15.2)
[2019-03-20 16:28] LABS: INR 1.13 (0.87-1.13)
[2019-03-20 16:29] LABS: Partial Thromboplastin Time 26.4 Sec. (24.2-36.6)
[2019-03-20 16:41] LABS: Alanine Aminotransferase 11 units/L (7-56); Albumin 4.1 g/dL (3.9-5); BUN/Creatinine Ratio 27; Blood Urea Nitrogen 19 mg/dL (7-17); Hemolysis Index 14
[2019-03-20] MEDS ORDERED: ONDANSETRON 4 MG/2 ML INJ IV ONE (17:10)
[2019-03-20] MEDS ORDERED: MORPHINE 4 MG/1 ML INJ IV ONE (17:10)
--- NOTE | 2019-03-20 17:13 | Emergency Department Report ---
ED Chest Pain HPI - General Chief Complaint: Chest Pain Stated Complaint: CHEST PAIN Time Seen by Provider: 03/20/19 17:03 Source: patient, EMS Mode of arrival: Stretcher Limitations: No Limitations - History of Present Illness Initial Comments: Patient is 39 years old female with history of hypertension, pulmonary embolism and DVT. Patient presented to the ER complaining of substernal chest pain, sharp with no radiation and patient stated that pain associated with shortness of breath and bilateral lower extremity swelling. Patient denied any fever or chills. MD Complaint: chest pain -: days(s) (3) Onset: during rest Pain Location: substernal Pain Radiation: none Severity: moderate Severity scale (0 -10): 10 Quality: sharp - Related Data Home Medications Medication Instructions Recorded Confirmed Last Taken Warfarin [Coumadin] 7.5 mg PO QDAY 03/20/19 03/20/19 03/17/19 Previous Rx's Medication Instructions Recorded Last Taken Type Citalopram Hydrobromide [Celexa] 40 mg PO DAILY #30 tablet 01/21/19 03/17/19 Rx Lopressor TAB 25 mg PO BID #60 01/21/19 03/17/19 Rx Losartan 100 mg PO DAILY #30 01/21/19 03/17/19 Rx Remeron 30 mg PO HS #30 01/21/19 03/17/19 Rx Warfarin [Coumadin] 7.5 mg PO DAILY@1700 #30 tablet 01/21/19 03/17/19 Rx amLODIPine [Norvasc] 10 mg PO DAILY #30 tablet 01/21/19 03/17/19 Rx oxyCODONE /ACETAMINOPHEN [Percocet 2 tab PO Q6H PRN #14 tablet 01/21/19 03/17/19 Rx 5/325 mg] traZODone 150 mg PO HS #30 01/21/19 03/17/19 Rx Allergies Allergy/AdvReac Type Severity Reaction Status Date / Time hydrochlorothiazide Allergy Intermediate Rash Verified 01/19/19 13:54 lisinopril Allergy Intermediate Swelling Verified 01/19/19 13:53 Heart Score - HEART Score History: Slightly suspicious EKG: Normal Age: < 45 Risk factors: 1-2 risk factors Troponin: < normal limit HEART Score: 1 - Critical Actions Critical Actions: 0-3 pts:0.9-1.7%risk of adverse cardiac event.Candidate for discharge ED Review of Systems ROS: Stated complaint: CHEST PAIN Other details as noted in HPI Comment: All other systems reviewed and negative Constitutional: denies: chills, fever Respiratory: shortness of breath. denies: cough, SOB with exertion, wheezing Cardiovascular: chest pain. denies: palpitations Gastrointestinal: denies: abdominal pain, nausea, vomiting, diarrhea Musculoskeletal: denies: back pain Neurological: denies: headache, weakness ED Past Medical Hx - Past Medical History Hx Hypertension: Yes Hx CVA: No Hx Heart Attack/AMI: No Hx Congestive Heart Failure: No Hx Diabetes: No Hx Deep Vein Thrombosis: No Hx Pulmonary Embolism: Yes (right 2018) Hx GERD: No Hx Liver Disease: No Hx Renal Disease: No Hx Sickle Cell Disease: No Hx Arthritis: No Hx Headaches / Migraines: Yes Hx Seizures: No Hx Kidney Stones: No Hx Psychiatric Treatment: No Hx Asthma: Yes Hx COPD: No Hx Tuberculosis: No Hx Dementia: No Hx HIV: No Additional medical history: DJD lumbar region - Surgical History Past Surgical History?: Yes Hx Coronary Stent: No Hx Pacemaker: No Hx Internal Defibrillator: No Hx Cholecystectomy: No Hx Appendectomy: No Hx Breast Surgery: No Additional Surgical History: x 4, hernia repair, D&C - Social History Smoking Status: Never Smoker Substance Use Type: None - Medications Home Medications: Home Medications Medication Instructions Recorded Confirmed Last Taken Type Citalopram Hydrobromide [Celexa] 40 mg PO DAILY #30 tablet 01/21/19 03/20/19 03/17/19 Rx Lopressor TAB 25 mg PO BID #60 01/21/19 03/20/19 03/17/19 Rx Losartan 100 mg PO DAILY #30 01/21/19 03/20/19 03/17/19 Rx Remeron 30 mg PO HS #30 01/21/19 03/20/19 03/17/19 Rx Warfarin [Coumadin] 7.5 mg PO DAILY@1700 #30 tablet 01/21/19 03/20/19 03/17/19 Rx amLODIPine [Norvasc] 10 mg PO DAILY #30 tablet 01/21/19 03/20/19 03/17/19 Rx oxyCODONE /ACETAMINOPHEN [Percocet 2 tab PO Q6H PRN #14 tablet 01/21/19 03/20/1919 Rx 5/325 mg] traZODone 150 mg PO HS #30 01/21/19 03/20/19 03/17/19 Rx Warfarin [Coumadin] 7.5 mg PO QDAY 03/20/19 03/20/19 03/17/19 History ED Physical Exam - General Limitations: No Limitations General appearance: alert, in no apparent distress - Head Head exam: Present: atraumatic, normocephalic, normal inspection - Eye Eye exam: Present: normal appearance - ENT ENT exam: Present: normal exam, normal orophraynx, mucous membranes moist - Neck Neck exam: Present: normal inspection, full ROM. Absent: tenderness, meningismus, lymphadenopathy, thyromegaly - Respiratory Respiratory exam: Present: normal lung sounds bilaterally - Cardiovascular Cardiovascular Exam: Present: regular rate, normal rhythm, normal heart sounds - GI/Abdominal GI/Abdominal exam: Present: soft, normal bowel sounds. Absent: distended, tenderness, guarding, rebound, rigid - Extremities Exam Extremities exam: Present: normal inspection, full ROM, normal capillary refill. Absent: pedal edema - Back Exam Back exam: Present: normal inspection, full ROM. Absent: CVA tenderness (R), C VA tenderness (L) - Neurological Exam Neurological exam: Present: alert, oriented X3, CN II-XII intact, normal gait, reflexes normal - Psychiatric Psychiatric exam: Present: normal mood - Skin Skin exam: Present: warm, intact, normal color ED Course Vital Signs 03/20/19 03/20/19 03/20/19 15:26 15:37 17:33 Temperature 98.8 F Pulse Rate 88 84 Respiratory 16 16 16 Rate Blood Pressure 139/96 Blood Pressure 139/96 139/96 [Left] O2 Sat by Pulse 96 96 96 Oximetry 03/20/19 19:10 Temperature 98.7 F Pulse Rate 77 Respiratory 24 Rate Blood Pressure Blood Pressure 151/101 [Left] O2 Sat by Pulse 95 Oximetry ED Medical Decision Making - Lab Data Result diagrams: 03/20/19 15:57 03/20/19 15:57 - EKG Data -: EKG Interpreted by Mo EKG shows normal: sinus rhythm Rate: normal - EKG Data Interpretation: no acute changes - Radiology Data Radiology results: report reviewed - Medical Decision Making Patient is 39 years old female with history of hypertension, pulmonary embolism and DVT. Patient presented to the ER complaining of substernal chest pain, sharp with no radiation and patient stated that pain associated with shortness of breath and bilateral lower extremity swelling. Patient denied any fever or chills. Patient received morphine and Zofran. Patient stated that she is feeling much better. Labs reviewed and is unremarkable. CTA chest is negative for PE. Patient asked if I can refill her warfarin 7.5 mg daily and metoprolol 25 mg twice a day until she see her primary care physician. Patient advised to follow-up with her primary care physician in the next 2-3 days and to attend to the ER if symptoms are not improved. Critical care attestation.: If time is entered above; I have spent that time in minutes in the direct care of this critically ill patient, excluding procedure time. ED Disposition Clinical Impression: Chest pain Disposition: DC-01 TO HOME OR SELFCARE Is pt being admited?: No Condition: Stable Instructions: Chest Pain (ED) Referrals: PRIMARY CARE [Referring] - 3-5 Days
--- NOTE | 2019-03-20 19:15 | Cat Scan Report ---
CTA CHEST WITH IV CONTRAST INDICATION: Acute onset chest pain with dyspnea. TECHNIQUE: Axial CT images were obtained through the chest after injection of 100 mL IV contrast. 3 plane MIP re constructions were produced. All CT scans at this location are performed using CT dose reduction for ALARA by means of automated exposure control. COMPARISON: None available. FINDINGS: PULMONARY ARTERIES: No pulmonary emboli. AORTA AND ARTERIES: No acute abnormality. MEDIASTINUM: No mass, lymphadenopathy or other significant abnormality. The heart is normal in size w ithout a pericardial effusion. The trachea and main bronchi are patent and normal in caliber. LUNGS: Patchy airspace consolidation identified within the perihilar right lung. Patchy bibasilar opa city of the lower lungs. ADDITIONAL FINDINGS: None. UPPER ABDOMEN: No acute findings. BONES: No significant osseous abnormality. IMPRESSION: 1. No CT evidence for pulmonary embolism. 2. Patchy subsegmental atelectasis of both lower lungs. Signer Name: Amadou Daily MD Signed: 03/20/2019 7:10 PM Workstation Name: [id number]
[2019-03-20 20:54] VITALS: BP 145/91
== END 2019-03-20 20:55 | disposition home or self-care (01) ==
LOC: ED 15:18
DX: R07.2 Precordial pain (principal); R06.02 Shortness of breath; I10 Essential (primary) hypertension; Z86.711 Personal history of pulmonary embolism; Z79.899 Other long term (current) drug therapy; Z88.8 Allergy status to other drugs, medicaments and biological substances
CPT/HCPCS: 36415; 71275; 80053; 83880; 85025; 85379; 85610; 85730; 93005; 93010; 96374; 96375; 99284; Q9967

== ENCOUNTER 2019-04-09 22:12 | Emergency (ER) | payer SELFPAY ==
[2019-04-10] MEDS ORDERED: PROVENTIL IH ONE (00:27)
[2019-04-10] MEDS ORDERED: NACL 0.9% 500 ML 500 ML IV ONE (00:29)
[2019-04-10] MEDS ORDERED: TYLENOL PO ONE (00:29)
[2019-04-10] MEDS ORDERED: ANTIVERT PO ONE (00:29)
[2019-04-10] MEDS ORDERED: XYLOCAINE TOPICAL 4% TP ONE (00:29)
[2019-04-10] MEDS ORDERED: REGLAN IV ONE (00:29)
--- NOTE | 2019-04-10 00:31 | Emergency Department Report ---
ED General Adult HPI - General Chief complaint: Dyspnea/Respdistress Stated complaint: CP/MANDO/R LEG PAIN/ORTIZ Time Seen by Provider: 04/09/19 23:03 Source: patient, EMS ( EMS documentation not available at time of chart dictation ), RN notes reviewed, old records reviewed Mode of arrival: Stretcher Limitations: No Limitations - History of Present Illness Initial comments: This is a 39-year-old female. Past medical history is extensive, including morbid obesity, diverticulosis, gastroenteritis, pulmonary embolism, obesity, probable obstructive sleep apnea, not on CPAP, hypertension, ovarian cyst, cardiomegaly Patient had a CT scan of the chest February 2019 at this hospital, negative for pulmonary embolism. The patient had an echocardiogram at this hospital in December 2018, which showed an ejection fraction of 55-60%. The patient is supposed to be on systemic anticoagulation. Apparently, she is not taking her anticoagulants secondary to insurance issues. The patient presents to the ER with multiple complaints. First complaint is headache. Her headache is right-sided, temporal, retro-orbital, and right forehead. The headache has been present for a few days. The headache is not sudden or thunderclap in nature. The headache did not which maximal intensity within an hour. The headache is intermittent, and is worse in the morning upon waking up. She also describes a sensation of vertigo. Vertigo is described as a sensation of room spinning. There is no tinnitus. There is no otalgia. There is no change in auditory acuity. The patient endorses an additional complaint of bilateral anterior lower extremity pain. This typically decreases with her trazodone and Remeron. The patient states that she does not have a primary care doctor, however, it is not clear who is prescribing these medications. The patient is worried about lower extremity DVT. This is chronic central chest pain. The pain does not radiate to the back, arms and neck. There is no vomiting. There is no diaphoresis. There is no recent aspirin consumption. There is positive chronic shortness of breath. The patient endorses cough, and acute on chronic shortness of breath. -: Gradual, days(s) Location: head, chest, left, right, lower extremity Severity scale (0 -10): 2 Quality: other Consistency: other Improves with: other Worsens with: other Associated Symptoms: other - Related Data Home Medications Medication Instructions Recorded Confirmed Last Taken Warfarin [Coumadin] 7.5 mg PO QDAY 03/20/19 03/20/19 03/17/19 Previous Rx's Medication Instructions Recorded Last Taken Type Citalopram Hydrobromide [Celexa] 40 mg PO DAILY #30 tablet 01/21/19 03/17/19 Rx Lopressor TAB 25 mg PO BID #60 01/21/19 03/17/19 Rx Losartan 100 mg PO DAILY #30 01/21/19 03/17/19 Rx Remeron 30 mg PO HS #30 01/21/19 03/17/19 Rx Warfarin [Coumadin] 7.5 mg PO DAILY@1700 #30 tablet 01/21/19 03/17/19 Rx amLODIPine [Norvasc] 10 mg PO DAILY #30 tablet 01/21/19 03/17/19 Rx oxyCODONE /ACETAMINOPHEN [Percocet 2 tab PO Q6H PRN #14 tablet 01/21/19 03/17/19 Rx 5/325 mg] traZODone 150 mg PO HS #30 01/21/19 03/17/19 Rx Metoprolol [Lopressor TAB] 25 mg PO BID #60 tablet 03/20/19 Unknown Rx Warfarin [Coumadin] 7.5 mg PO QDAY #30 tablet 03/20/19 Unknown Rx traMADol [Ultram 50 MG tab] 50 mg PO Q4HR PRN #14 tablet 03/20/19 Unknown Rx Albuterol Sulfate [Proair 90 mcg IH Q4HR PRN #2 aer.pow.ba 04/10/19 Unknown Rx Respiclick] Enoxaparin [Lovenox] 120 mg SQ Q12HR #14 syringe 04/10/19 Unknown Rx Meclizine [Antivert] 25 mg PO TID PRN #15 tablet 04/10/19 Unknown Rx Allergies Allergy/AdvReac Type Severity Reaction Status Date / Time hydrochlorothiazide Allergy Intermediate Rash Verified 01/19/19 13:54 lisinopril Allergy Intermediate Swelling Verified 01/19/19 13:53 ED Review of Systems ROS: Stated complaint: CP/MANDO/R LEG PAIN/ORTIZ Other details as noted in HPI Constitutional: weakness. denies: fever ENT: congestion Respiratory: shortness of breath Cardiovascular: chest pain, palpitations. denies: syncope Gastrointestinal: denies: vomiting Genitourinary: denies: dysuria Musculoskeletal: arthralgia, myalgia Skin: denies: lesions Neurological: weakness. denies: paresthesias Psychiatric: anxiety Hematological/Lymphatic: denies: easy bleeding ED Past Medical Hx - Past Medical History Hx Hypertension: Yes Hx CVA: No Hx Heart Attack/AMI: No Hx Congestive Heart Failure: No Hx Diabetes: No Hx Deep Vein Thrombosis: No Hx Pulmonary Embolism: Yes (right 2018) Hx GERD: No Hx Liver Disease: No Hx Renal Disease: No Hx Sickle Cell Disease: No Hx Arthritis: No Hx Headaches / Migraines: Yes Hx Seizures: No Hx Kidney Stones: No Hx Psychiatric Treatment: No Hx Asthma: Yes Hx COPD: No Hx Tuberculosis: No Hx Dementia: No Hx HIV: No Additional medical history: DJD lumbar region - Surgical History Past Surgical History?: Yes Hx Coronary Stent: No Hx Pacemaker: No Hx Internal Defibrillator: No Hx Cholecystectomy: No Hx Appendectomy: No Hx Breast Surgery: No Additional Surgical History: x 4, hernia repair, D&C - Social History Smoking Status: Never Smoker Substance Use Type: Alcohol - Medications Home Medications: Home Medications Medication Instructions Recorded Confirmed Last Taken Type Citalopram Hydrobromide [Celexa] 40 mg PO DAILY #30 tablet 01/21/19 03/20/19 0 03/17/19 Rx Lopressor TAB 25 mg PO BID #60 01/21/19 03/20/19 03/17/19 Rx Losartan 100 mg PO DAILY #30 01/21/19 03/20/19 03/17/19 Rx Remeron 30 mg PO HS #30 01/21/19 03/20/19 03/17/19 Rx Warfarin [Coumadin] 7.5 mg PO DAILY@1700 #30 tablet 01/21/19 03/20/19 03/17/19 Rx amLODIPine [Norvasc] 10 mg PO DAILY #30 tablet 01/21/19 03/20/19 03/17/19 Rx oxyCODONE /ACETAMINOPHEN [Percocet 2 tab PO Q6H PRN #14 tablet 01/21/19 03/20/19 03/17/19 Rx 5/325 mg] traZODone 150 mg PO HS #30 01/21/19 03/20/19 03/17/19 Rx Metoprolol [Lopressor TAB] 25 mg PO BID #60 tablet 03/20/19 Unknown Rx Warfarin [Coumadin] 7.5 mg PO QDAY 03/20/19 03/20/19 03/17/19 History Warfarin [Coumadin] 7.5 mg PO QDAY #30 tablet 03/20/19 Unknown Rx traMADol [Ultram 50 MG tab] 50 mg PO Q4HR PRN #14 tablet 03/20/19 Unknown Rx Albuterol Sulfate [Proair 90 mcg IH Q4HR PRN #2 aer.pow.ba 04/10/19 Unknown Rx Respiclick] Enoxaparin [Lovenox] 120 mg SQ Q12HR #14 syringe 04/10/19 Unknown Rx Meclizine [Antivert] 25 mg PO TID PRN #15 tablet 04/10/19 Unknown Rx ED Physical Exam - General Limitations: No Limitations, Other (during the history and physical, we are chaperoned by nurse Lorie Lyles) General appearance: alert, in no apparent distress - Head Head exam: Present: atraumatic, normocephalic - Eye Eye exam: Present: normal appearance, PERRL, EOMI, other (visual acuity intact to finger counting, color perception, reading at a close distance). Absent: nystagmus - ENT ENT exam: Present: normal exam, normal orophraynx, mucous membranes moist, TM's normal bilaterally, normal external ear exam - Neck Neck exam: Present: normal inspection, full ROM. Absent: tenderness, meningismus - Respiratory Respiratory exam: Present: chest wall tenderness, prolonged expiratory. Absent: respiratory distress, wheezes, rales, rhonchi, stridor - Cardiovascular Cardiovascular Exam: Present: regular rate, normal rhythm, normal heart sounds. Absent: bradycardia, tachycardia, irregular rhythm, systolic murmur, diastolic murmur, rubs, gallop - GI/Abdominal GI/Abdominal exam: Present: soft. Absent: distended, tenderness, guarding, rebound, rigid, pulsatile mass - Extremities Exam Extremities exam: Present: normal inspection, full ROM, other (2+ pulses noted in the bilateral upper, lower extremities. There is no long bone tenderness. Musculoskeletal compartments are soft. The pelvis is stable.). Absent: pedal edema, calf tenderness - Back Exam Back exam: Present: normal inspection, full ROM. Absent: tenderness, CVA tenderness (R), CVA tenderness (L), paraspinal tenderness, vertebral tenderness - Neurological Exam Neurological exam: Present: alert, oriented X3, normal gait (there is no past-pointing. There is no pronator drift. walks with a normal gait), other (there is no facial droop. The tongue is midline. Extraocular movements are intact bilaterally. Patient speaking in full complete sentences. Shoulder shrug is intact bilaterally. Hearing is grossly intact bilaterally. Visual a cuity intact to finger counting and color perception at a close distance. 5/5 strength 4 extremities. Sensation intact to light touch in 4 extremities.). Absent: motor sensory deficit - Psychiatric Psychiatric exam: Present: anxious - Skin Skin exam: Present: warm, dry, intact, normal color. Absent: rash ED Course Vital Signs 04/09/19 04/10/19 04/10/19 22:43 00:06 05:16 Temperature 98.9 F Pulse Rate 65 70 Respiratory 21 20 20 Rate Blood Pressure 159/91 145/91 [Right] O2 Sat by Pulse 99 98 97 Oximetry - Reevaluation(s) Reevaluation #1: 04/10/19 03:10 Differential diagnosis, including but not limited to: Migraine headache, tension headache, cluster headache, intracranial hemorrhage, headache secondary to obstructive sleep apnea, obstructive sleep apnea, obesity hypoventilation syndrome, morbid obesity, physical deconditioning, pulmonary hypertension, bronchitis, pneumonia, pulmonary embolism, acute coronary syndrome, cerumen impaction, neuropathic pain, musculoskeletal pain, DVT Assessment and plan: 39-year-old female with multiple past medical issues, with multiple complaints Complaint #1 headache: Patient has a GCS of 15, walks with a steady gait, and has a nonfocal neurologic examination. There is no neck pain or neck stiffness. There are no cranial nerve deficits. Headache is most likely related to poorly managed obesity, and probable obstructive sleep apnea, and obesity hypoventilation syndrome. Her otologic exam is unremarkable. We will treat her pain supportively and symptomatically. Patient does not have a sudden or thunderclap headache and there is no neck pain or neck stiffness. This is unlikely to be intracranial hemorrhage or ischemic stroke. Complaint #2 otalgic: Otologic exam unremarkable. She'll receive pain medication for this. She can follow-up in outpatient primary care doctor for this. Complaint #3, lower extremity pain: Walks with a steady gait, no evidence of compartment syndrome, she is neurovascularly intact, there is no evidence for emergent condition in her bilateral lower extremities, her DVT study was negative. She can follow-up with a primary care doctor for this. Chronic chest pain, chronic shortness of breath This is most likely related to her morbid obesity. The patient is strongly encouraged to lose weight, and to follow up with a primary care doctor, sleep specialist/pulmonary physician for probable sleep apnea. We discussed diet and lifestyle modifications. Patient is also counseled that she may follow up with an outpatient bariatric surgeon if she prefers bariatric intervention. EKG unchanged 1, her vascular risk factors are reviewed and appreciated, however, given chronicity of symptoms, and multiple ER evaluations, the patient can be given close outpatient follow-up. Addition, she had a CT scan of the chest last month which was negative for acute disease. Reevaluation #2: 04/10/19 05:14 CT scan chest negative for acute disease. CT scan brain negative for acute disease. EKG unchanged 2. Troponin is negative 2. Vital signs remain stable. Patient noted to be preoccupied with her cellular phone. She'll need to follow up with the primary care doctor, home neurologist, bariatric surgeon, and vice president of contracts. This appears to be an exacerbation of her chronic underlying condition. ED Medical Decision Making - Lab Data Result diagrams: 04/10/19 00:33 04/10/19 00:33 Vital Signs 04/09/19 04/10/19 22:43 00:06 Temperature 98.9 F Pulse Rate 65 Respiratory 21 20 Rate Blood Pressure 159/91 [Right] O2 Sat by Pulse 99 98 Oximetry Lab Results 04/10/19 04/10/19 04/10/19 Range/Units 00:33 00:33 00:33 WBC (4.5-11.0) K/mm3 RBC (3.65-5.03) M/mm3 Hgb (10.1-14.3) gm/dl Hct (30.3-42.9) % MCV (79-97) fl MCH (28-32) pg MCHC (30-34) % RDW (13.2-15.2) % Plt Count (140-440) K/mm3 PT 13.0 (12.2-14.9) Sec. INR 1.01 (0.87-1.13) APTT 24.0 L (24.2-36.6) Sec. D-Dimer 850.75 H (0-234) ng/mlDDU Sodium 142 (137-145) mmol/L Potassium 3.8 (3.6-5.0) mmol/L Chloride 99.3 (98-107) mmol/L Carbon Dioxide 30 (22-30) mmol/L Anion Gap 17 mmol/L BUN 10 (7-17) mg/dL Creatinine 0.7 (0.7-1.2) mg/dL Estimated GFR > 60 ml/min BUN/Creatinine Ratio 14 % Glucose 98 (65-100) mg/dL Calcium 9.6 (8.4-10.2) mg/dL Magnesium 2.00 (1.7-2.3) mg/dL Total Bilirubin 0.60 (0.1-1.2) mg/dL AST 13 (5-40) units/L ALT 7 (7-56) units/L Alkaline Phosphatase 92 (35-129) units/L Total Creatine Kinase 84 (30-135) units/L Total Protein 7.4 (6.3-8.2) g/dL Albumin 4.1 (3.9-5) g/dL Albumin/Globulin Ratio 1.2 % HCG, Quant (0-4) mIU/mL 04/10/19 04/10/19 Range/Units 00:33 00:33 WBC 7.6 (4.5-11.0) K/mm3 RBC 3.89 (3.65-5.03) M/mm3 Hgb 10.5 (10.1-14.3) gm/dl Hct 32.6 (30.3-42.9) % MCV 84 (79-97) fl MCH 27 L (28-32) pg MCHC 32 (30-34) % RDW 16.0 H (13.2-15.2) % Plt Count 267 (140-440) K/mm3 PT (12.2-14.9) Sec. INR (0.87-1.13) APTT (24.2-36.6) Sec. D-Dimer (0-234) ng/mlDDU Sodium (137-145) mmol/L Potassium (3.6-5.0) mmol/L Chloride (98-107) mmol/L Carbon Dioxide (22-30) mmol/L Anion Gap mmol/L BUN (7-17) mg/dL Creatinine (0.7-1.2) mg/dL Estimated GFR ml/min BUN/Creatinine Ratio % Glucose (65-100) mg/dL Calcium (8.4-10.2) mg/dL Magnesium (1.7-2.3) mg/dL Total Bilirubin (0.1-1.2) mg/dL AST (5-40) units/L ALT (7-56) units/L Alkaline Phosphatase (35-129) units/L Total Creatine Kinase (30-135) units/L Total Protein (6.3-8.2) g/dL Albumin (3.9-5) g/dL Albumin/Globulin Ratio % HCG, Quant 2.44 (0-4) mIU/mL - EKG Data -: EKG Interpreted by Me EKG shows normal: sinus rhythm Rate: normal - EKG Data When compared to previous EKG there are: no significant change 04/10/19 03:09 The EKG today is not consistent with ST elevation myocardial infarction. It is unchanged from prior EKG from February 2019. This is a sinus rhythm, 65 bpm, borderline leftward axis, left anterior fascicular block, poor R wave progression, low voltage, motion artifact, the EKG is not consistent with ST elevation myocardial infarction. - Radiology Data Radiology results: pending, report reviewed, image reviewed Critical care attestation.: If time is entered above; I have spent that time in minutes in the direct care of this critically ill patient, excluding procedure time. ED Disposition Clinical Impression: Noncompliance, Morbid obesity, Leg pain, Otalgia, SOB (shortness of breath) Disposition: -01 TO HOME OR SELFCARE Is pt being admited?: No Does the pt Need Aspirin: No Condition: Stable Additional Instructions: Patient may take [id number], Tylenol, 650 mg, with food, every 4-6 hours as needed for pain. This can be alternated with ibuprofen, 600 mg, with food, every 6 hours. Take a breathing medication as needed and directed. Take the meclizine as needed and directed. Recommend aggressive weight loss, modification of diet and lifestyle as discussed. Long-term complications of morbid obesity includes sleep apnea, pulmonary hypertension, congestive heart failure, stroke, disability, paralysis, loss of quality of life. Recommend follow-up with the primary care doctor within the next 2 weeks. Recommend follow-up with the industrial automation specialist, such as Dr. Ziegler Within the next 2 weeks. Recommend follow-up with the bariatric surgeon, such as Dr. Torres, within the next month, for bariatric surgery consultation to discuss weight loss options. Recommend follow-up with a vice president of contracts, such as Dr. Luong, within the next week. Patient may take aspirin, 81 mg, [id number], on a daily basis. Avoid con sumption of heavy, spicy foods, alcohol, simple carbohydrates. Return to the emergency room right away with projectile vomiting, change in mental status, confusion, new, worsening or different symptoms not present on the initial emergency room evaluation. Prescriptions: Meclizine [Antivert] 25 mg PO TID PRN #15 tablet PRN Reason: Vertigo Enoxaparin [Lovenox] 120 mg SQ Q12HR #14 syringe Albuterol Sulfate [Proair Respiclick] 90 mcg IH Q4HR PRN #2 aer.pow.ba PRN Reason: Wheezing Referrals: KURTIS ZIEGLER MD [Staff Physician] - 3-5 Days CROW CHICAS MD [Staff Physician] - 3-5 Days EMILY LUONG MD [Staff Physician] - 3-5 Days TILA TORRES MD [Staff Physician] - 3-5 Days
[2019-04-10 00:51] LABS: Hematocrit 32.6 % (30.3-42.9); Hemoglobin 10.5 gm/dl (10.1-14.3); Mean Corpuscular HGB Conc 32 % (30-34); Mean Corpuscular Volume 84 fl (79-97); Platelet Count 267 K/mm3 (140-440); Red Blood Count 3.89 M/mm3 (3.65-5.03)
[2019-04-10 01:18] LABS: Alanine Aminotransferase 7 units/L (7-56); Albumin 4.1 g/dL (3.9-5); BUN/Creatinine Ratio 14; Blood Urea Nitrogen 10 mg/dL (7-17); Calcium 9.6 mg/dL (8.4-10.2); Hemolysis Index 6
[2019-04-10 01:25] LABS: INR 1.01 (0.87-1.13)
--- NOTE | 2019-04-10 03:29 | Vascular Lab Report ---
DUPLEX DOPPLER LOWER EXTREMITY VEINS, BILATERAL INDICATION: B/L LOWER EXT SWELLING. TECHNIQUE: Duplex doppler imaging was performed through the veins of both lower extremities using venous savi nedra and other maneuvers. COMPARISON: No relevant prior imaging study available. FINDINGS: Right Common femoral vein: Negative. Right Superficial femoral vein: Negative. Right Popliteal vein: Negative. Right Calf veins: Negative. Left Common femoral vein: Negative. Left Superficial femoral vein: Negative. Left Popliteal vein: Negative. Left Calf veins: Negative. Additional findings: None.. IMPRESSION: 1. No sonographic evidence for DVT in either lower extremity. Signer Name: Jomar Agudelo MD Signed: 04/10/2019 3:24 AM Workstation Name: [id number]
--- NOTE | 2019-04-10 03:30 | XRay Report ---
CHEST 2 VIEWS INDICATION / CLINICAL INFORMATION: Dyspnea. COMPARISON: 01/11/2019 FINDINGS: SUPPORT DEVICES: None. HEART / MEDIASTINUM: Heart size remains slightly prominent. LUNGS / PLEURA: Linear densities have developed in the right midlung most likely due to subsegmental atelectasis. No acute interstitial or airspace pulmonary disease. No pneumothorax. ADDITIONAL FINDINGS: No significant additional findings. IMPRESSION: 1. Atelectasis in the right lung. 2. Stable mild cardiomegaly. Signer Name: Jomar Agudelo MD Signed: 04/10/2019 3:26 AM Workstation Name: [id number]
--- NOTE | 2019-04-10 03:32 | Cat Scan Report ---
CT head/brain wo con INDICATION / CLINICAL INFORMATION: headache migraine ear pain. TECHNIQUE: All CT scans at this location are performed using CT dose reduction for ALARA by means of automated e xposure control. COMPARISON: None available. FINDINGS: No intracranial hemorrhage, mass effect or abnormal extra-axial fluid collection. The ventricular system and basilar cisterns are normal. No evidence of territorial infarction. The visualized paranasal sinuses are normal. Osseous structures are normal. IMPRESSION: 1. Negative nonenhanced head CT. Signer Name: Jomar Agudelo MD Signed: 04/10/2019 3:27 AM Workstation Name: [id number]
--- NOTE | 2019-04-10 05:03 | Cat Scan Report ---
CT angio chest INDICATION / CLINICAL INFORMATION: cp sob. TECHNIQUE: Precontrast bolus timing images were obtained followed by postcontrast axial and reformatted images. 3-plane MIP reconstructions were performed at an independent workstation by the technologist. All CT scans at this location are performed using CT dose reduction for ALARA by means of automated exposure control. COMPARISON: 03/20/2019 FINDINGS: Enhancement of the pulmonary arteries is normal. No evidence of acute pulmonary embolism. No mediastinal abnormality. Dependent atelectasis in both lower lungs is similar to the comparison study. No evidence of acute interstitial opacity or airspace consolidation. No skeletal abnormality. IMPRESSION: 1. No evidence of acute pulmonary embolism. 2. Bilateral subsegmental atelectasis. Signer Name: Jomar Agudelo MD Signed: 04/10/2019 4:58 AM Workstation Name: [id number]
[2019-04-10] MEDS ORDERED: IBUPROFEN PO ONE ×2 (05:57→06:00)
[2019-04-10 06:22] VITALS: BP 133/80
== END 2019-04-10 06:39 | disposition home or self-care (01) ==
LOC: ED 22:12
DX: M79.605 Pain in left leg (principal); H92.02 Otalgia, left ear; R06.02 Shortness of breath; E66.01 Morbid (severe) obesity due to excess calories; Z68.43 Body mass index [BMI] 50.0-59.9, adult; Z91.14 Patient's other noncompliance with medication regimen
CPT/HCPCS: 36415; 70450; 71046; 71275; 80053; 82550; 83735; 84484; 84702; 85027; 85379; 85610; 85730; 93005; 93010; 93970; 96374; 99285; J2765; J7040; Q9967